=== PATIENT | female | born 1990 | race Caucasian/White ===

== ENCOUNTER 2025-04-11 19:35 | Inpatient (IN) | payer OTHER, SELFPAY ==
--- NOTE | ~2025-04-11 | CT_ITS ---
EXAMINATION: CTA chest PE protocol DATE: 04/11/2025 22:01 INDICATION: Shortness of breath, tachycardia, positive DVT. TECHNIQUE: Computed tomography (CT) pulmonary angiogram of the chest was performed with 100 mL Omnipa que-350 intravenous contrast. Additional 3D reconstructions utilizing coronal maximum intensity proje ction (MIP) were performed. Automated exposure control and iterative reconstruction technique were em ployed. The dose-length product was 289.49 mGy-cm. COMPARISON: None FINDINGS: No pulmonary embolism. Mild dependent atelectasis in bilateral lower lobes. There are a few bilateral calcified pulmonary nodules consistent with old granulomatous disease. No pneumonia, pulmonary edema , pleural effusion or pneumothorax. Heart size is normal. No pericardial effusion. Thoracic aorta is normal in caliber. No pathologically enlarged thoracic lymphadenopathy. Suture lines along the stomac h suggesting prior sleeve gastrectomy. Mild thoracic spondylosis. IMPRESSION: 1. No pulmonary embolism or other acute cardiopulmonary disease. Reviewed, dictated and finalized at location A.
--- NOTE | ~2025-04-11 | US_ITS ---
EXAMINATION: US venous doppler [facility] DATE: 04/11/2025 21:15 INDICATION: Lower limb pain and swelling, tachycardia and elevated d-dimer. TECHNIQUE: Grayscale ultrasound images without and with compression and Doppler ultrasound images of the bilateral lower extremity veins were obtained. COMPARISON: None. FINDINGS: The visualized portions of right common femoral vein, profunda (deep) femoral vein, femoral vein, pop liteal vein, posterior tibial veins, peroneal veins, gastrocnemius vein and greater saphenous vein ou tflow are patent. The visualized portions of left common femoral vein, profunda femoral vein, femoral vein, popliteal v ein, posterior tibial veins, peroneal veins, gastrocnemius vein and greater saphenous vein outflow ar e patent. IMPRESSION: 1. No deep venous thrombosis in either lower limb. Reviewed, dictated and finalized at location A.
--- NOTE | ~2025-04-11 | US_ITS ---
EXAMINATION: US venous doppler [facility] DATE: 04/11/2025 21:15 INDICATION: Upper extremity pain and swelling, tachycardia and elevated d-dimer TECHNIQUE: Grayscale images without and with compression and Doppler images of the bilateral upper ex tremity veins were obtained. COMPARISON: None. FINDINGS: The right internal jugular vein, subclavian vein, axillary vein, brachial vein, basilic vein, cephali c vein, radial vein, and ulnar vein are patent. There is noncompressible thrombus in the left ulnar vein, left brachial vein and left basilic vein. T he left internal jugular vein, subclavian vein, axillary vein, cephalic vein and radial vein are woods nt. IMPRESSION: 1. Noncompressible thrombus in the left brachial, basilic and ulnar veins. 2. No thrombosis in the veins of the right upper extremity. Reviewed, dictated and finalized at location A.
--- NOTE | ~2025-04-11 | CT_ITS ---
Non-contrast Head CT History: Right arm paresthesia Technique: Axial non-contrast imaging of the brain was performed. Dose reduction technique was used on this scan by utilizing automated exposure control and iterative reconstruction technique. The dose -length product (DLP) was 681.00 mGy-cm. Findings: There is no evidence of intracranial hemorrhage, mass lesion, or acute infarct. Brain par enchyma appears normal. The ventricles and subarachnoid spaces are normal in size. The calvarium ap pears normal. The visualized paranasal sinuses and mastoid air cells are clear. Impression: No significant abnormality seen. Reviewed, dictated and finalized at location . Impression: No significant abnormality seen.
--- NOTE | ~2025-04-11 | XR_ITS ---
EXAMINATION: XR chest 1V portable DATE: 04/11/2025 19:53 INDICATION: Shortness of breath. Tachycardia. TECHNIQUE: AP view of the chest was obtained. COMPARISON: None FINDINGS: The lungs are clear with no focal airspace opacities, pulmonary edema, pleural effusion or pneumothor ax. The cardiomediastinal silhouette is normal. Visualized bones and soft tissues are unremarkable. IMPRESSION: 1. No acute cardiopulmonary disease. Reviewed, dictated and finalized at location A.
--- NOTE | ~2025-04-11 | US_ITS ---
US right upper quadrant INDICATION: PROCEDURE: Realtime right upper abdominal ultrasound. COMPARISON: No prior studies for comparison. FINDINGS: The pancreas is normal without focal mass or pancreatic ductal dilation. Liver is enlarged measuring 17.9 cm. Liver echotexture is increased consistent with fatty infiltration. There is norm al directional flow in the portal vein. The gallbladder is normal without stones, gallbladder wall thickening or pericholecystic fluid. Comm on bile duct measures 4 mm. No sonographic Aponte's sign. IMPRESSION: 1: Fatty infiltration of the liver with hepatomegaly. Reviewed, dictated and finalized at location B.
[2025-04-11 19:38] VITALS: BP 113/72; PULSE 137; RESP 18; TEMP 36.8; O2SAT 100
--- NOTE | 2025-04-11 19:41 | ECG_ITS ---
Test Date: 2025-04-11 19:41:58 Measurements Intervals [place] Rate: 139 P: 84 DE: 118 QRS: 86 QRSD: 89 T: 7 QT: 290 QTc: 442 Interpretive Statements SINUS TACHYCARDIA MODERATE ST DEPRESSION [0.05+ mV ST DEPRESSION] No previous ECG available for comparison Electronically Signed On 04-12-2025 12:40:17 CDT by Kris Diallo M.D.
[2025-04-11 20:00] VITALS: PULSE 125
--- NOTE | 2025-04-11 20:02 | ED_ITS ---
[facility] - General Adult General Chief complaint: Unspecified Stated complaint: leg swelling, arm numbness, headache Time Seen by Provider: 04/11/25 19:46 History of Present Illness HPI narrative: 34-year-old female [facility] for concerns of shortness of breath, swollen right arm and right leg as well as intermittent paresthesias in her right upper extremity from the elbow down to the wrist. Endorses a headache earlier that was responsive to Tylenol presently gone. No trauma or injury, no neck pain, chest pain, abdominal pain or back pain. She states she has had a large weight gain over last few weeks as well. She was recently hospitalized for heat exhaustion and dehydration at [facility] and discharged home on Thursday. She reported that she had a high dimer at that time and get a CT scan of the chest that was negative but did not do any kind of ultrasounds were extremities and this raised her her concern for blood clot in her arms or legs especially with the swelling in the extremities and intermittent paresthesias. No control use, no history of blood clots, no anticoagulation use otherwise. Related Data Allergies Allergy/AdvReac Type Severity Reaction Status Date / Time No Known Allergies Allergy Verified 04/11/25 19:36 Review of Systems 2 Review of Systems: As reviewed above in [facility] Past Medical History Medical History (Updated 04/12/25 @ 05:24 by Enrique Jasso MD) Venous thrombosis of upper extremity Left brachial, basilic, ulnar vein diagnosis on 04/11/2025 Exam 2 Narrative: GENERAL: [Well-appearing, well-nourished, and in no acute distress.] HEAD: [Normocephalic, atraumatic.] EYES: [PERRLA and EOMI.] ENT: Nares clear, no rhinorrhea or epistaxis. Mucous membranes moist. NECK: Supple. CHEST: [Clear to auscultation. No respiratory distress.] HEART: [Regular rate and rhythm]. No murmur heard. [Normal peripheral pulses.] ABDOMEN: [Soft, nondistended], [nontender], [No rigidity or guarding] EXTREMITIES: Mild calf asymmetry with right-sided greater than left-sided but no pitting edema to the legs. No pain with calf palpation stretching. Warm extremities, equal pulses. Right upper extremity has some reproducible pain along the antecubital fossa going down to the wrist on the lateral aspect with recent venipuncture site and bruising proximally near the AC from previous IV several days ago. Chuck Splitter strength 5/5, no upper extremity asymmetry, full range of motion at the shoulder elbow and wrist. SKIN: Warm, dry, no rash. NEURO: [No focal deficits]. Alert and oriented [x3.] PSYCH: [Normal mood and affect.] Course Vital Signs Vital signs: Vital Signs Temperature 36.8 C 04/11/25 19:38 Pulse Rate 137 H 04/11/25 19:38 Respiratory Rate 18 04/11/25 19:38 Blood Pressure 113/72 04/11/25 19:38 Pulse Oximetry 100 04/11/25 19:38 Oxygen Delivery Room Air 04/11/25 19:38 Temperature 36.8 C 04/11/25 19:38 Pulse Rate 83 04/12/25 02:31 Respiratory Rate 16 04/12/25 02:31 Blood Pressure 105/69 04/12/25 02:31 Pulse Oximetry 99 04/12/25 02:31 Oxygen Delivery Room Air 04/11/25 19:38 Medical Decision Making MDM Narrative Medical decision making narrative: 34-year-old female presenting [facility] for concerns of shortness of breath, swollen right arm and right leg as well as intermittent paresthesias in her right upper extremity from the elbow down to the wrist. Endorses a headache earlier that was responsive to Tylenol presently gone. No trauma or injury, no neck pain, chest pain, abdominal pain or back pain. She states she has had a large weight gain over last few weeks as well. She was recently hospitalized for heat exhaustion and dehydration at [facility] and discharged home on Thursday. She reported that she had a high dimer at that time and get a CT scan of the chest that was negative but did not do any kind of ultrasounds were extremities and this raised her her concern for blood clot in her arms or legs especially with the swelling in the extremities and intermittent paresthesias. No control use, no history of blood clots, no anticoagulation use otherwise. Examination reveals patient is tachycardic with a pulse of 100 20s to 130s with regular rhythm. Normal blood pressure, no tachypnea, hypoxia or fever. Mild calf asymmetry with right-sided greater than left-sided but no pitting edema to the legs. No pain with calf palpation stretching. Warm extremities, equal pulses. Right upper extremity has some reproducible pain along the antecubital fossa going down to the wrist on the lateral aspect with recent venipuncture site and bruising proximally near the AC from previous IV several days ago. Chuck Splitter strength 5/5, no upper extremity asymmetry, full range of motion at the shoulder elbow and wrist. Patient's constellation of symptoms are vague could be related to her recent hospitalization for dehydration and heat exhaustion, rhabdomyolysis is possible, blood clot in the arms or legs possible specially with the calf asymmetry. Her pain right upper extremity was subjective paresthesias is intermittent in nature not constant and her headache is gone so suspicion for intracranial pathology is unlikely and especially with the venipuncture site being the started for area and question of symptoms on the right upper extremity suspicion for phlebitis and thrombophlebitis is higher. Bilateral upper and lower extremity Dopplers were ordered, CBC, CMP, troponin, EKG, chest x-ray, CPK, fluid bolus ordered. Patient's Dopplers were independently reviewed and also interpreted by Radiology she does have an acute DVT in the basilic, ulnar and brachial veins. Given patient's tachycardia and subjective shortness of breath suspicion raise for pulmonary embolism at this time so CT thorax with PE protocol ordered. CT PE was independently reviewed and also interpreted by Radiology without any acute cardiopulmonary disease in the chest and no PE was found. Patient does have an elevated CPK but her compartments are soft and her extremities with recent heat exhaustion and admission to outside hospital this is likely rhabdomyolysis from dehydration. Patient's CPK was down trending as well as her heart rate normalized with fluid resuscitation which makes me reassured. Laboratory studies otherwise show no leukocytosis or anemia. Lactic acid 2.3 down trending to 1.2, negative troponin x2. Negative lipase, normal kidney function. Patient started on 10 mg dose of Eliquis for her acute DVTs and discussed the case with the hospitalist for admission given patient's rhabdomyolysis, acute DVTs, need for rehydration and her concerning vital signs on presentation that have since normalized. Patient was accepted to the hospital under telemetry monitored bed at this time. Patient re-evaluated and comfortable the plan and felt improved after hydration. Medical Records Medical records reviewed: Yes I reviewed the external patient's medical records. Vital Signs Vital Signs: Vital Signs Temperature 36.8 C 04/11/25 19:38 Pulse Rate 137 H 04/11/25 19:38 Respiratory Rate 18 04/11/25 19:38 Blood Pressure 113/72 04/11/25 19:38 Pulse Oximetry 100 04/11/25 19:38 Oxygen Delivery Room Air 04/11/25 19:38 Temperature 36.8 C 04/11/25 19:38 Pulse Rate 83 04/12/25 02:31 Respiratory Rate 16 04/12/25 02:31 Blood Pressure 105/69 04/12/25 02:31 Pulse Oximetry 99 04/12/25 02:31 Oxygen Delivery Room Air 04/11/25 19:38 Lab Data Lab results reviewed: Yes I reviewed the patient's lab results. 04/11/25 20:07 04/11/25 20:07 Labs: Lab Results 04/11/25 04/11/25 Range/Units 20:07 22:41 WBC 9.5 (4.5-10.0) K/mm3 RBC 4.19 L (4.2-5.4) M/mm3 Hgb 12.0 (12.0-15.0) g/dL Hct 38.0 (37.0-47.0) % MCV 90.7 (80-100) fl MCH 28.6 (26-34) pg MCHC 31.6 L (32-36) g/dl RDW 13.7 (11.5-14.5) % Plt Count 333 (150-375) k/mm3 MPV 8.4 (7.4-10.4) fl Immature Gran % (Auto) 0.3 (0-0.5) % Neut % (Auto) 63.3 (45.5-73.1) % Lymph % (Auto) 27.1 (18.3-44.2) % [place] % (Auto) 6.6 (2.6-8.5) % Eos % (Auto) 1.9 (0-4.4) % Baso % (Auto) 0.8 (0.2-1.2) % Lymph # (Auto) 2.58 (0.9-3.2) K/mm3 [place] # (Auto) 0.6 (0.1-0.6) K/mm3 Eos # (Auto) 0.2 (0-0.3) K/mm3 Baso # (Auto) 0.1 (0.0-0.1) K/mm3 Abs Immat Gran (auto) 0.03 (0.00-0.031) K/mm3 Absolute Neuts (auto) 6.0 (1.3-6.7) K/mm3 Absolute Nucleated RBC 0.000 (0.0-0.012) K/mm3 Nucleated RBC % 0.0 (0.0-0.2) % PT 11.8 (11.1-14.7) Seconds INR 0.8 APTT 24.9 (22.3-36.8) Seconds Sodium 138 (137-145) mmol/L Potassium 4.6 (3.4-5.0) mmol/L Chloride 106 (98-107) mmol/L Carbon Dioxide 26 (22-30) mmol/L Anion Gap 6 (4-12) mmol/L BUN 15 (7-17) mg/dL Creatinine 0.75 (0.7-1.0) mg/dL Estim Creat Clear Calc 93 ml/min Estimated GFR > 60 (59 - ) Glucose 86 (65-110) mg/dL Lactic Acid 2.3 H (0.7-2.0) mmol/L Calcium 9.2 (8.4-10.2) mg/dL Total Bilirubin 0.2 (0.2-1.3) mg/dL AST 67 H (14-36) U/L ALT 88 H (6-35) U/L Alkaline Phosphatase 70 (38-126) U/L Total Creatine Kinase 2255 H 1499 H (30-135) U/L Troponin I < 0.012 < 0.012 (0.000-0.034) ng/mL Total Protein 6.9 (6.3-8.2) g/dL Albumin 3.7 (3.5-5.1) g/dL Lipase 211 (23-300) U/L Imaging Data Attestation: I personally reviewed and interpreted this imaging study as follows: My impression: Impressions Chest X-Ray 04/11/25 20:15 IMPRESSION: 1. No acute cardiopulmonary disease. Venous Doppler Study 04/11/25 21:35 IMPRESSION: 1. Noncompressible thrombus in the left brachial, basilic and ulnar veins. 2. No thrombosis in the veins of the right upper extremity. Venous Doppler Study 04/11/25 21:38 IMPRESSION: 1. No deep venous thrombosis in either lower limb. Chest CTA 04/11/25 22:07 IMPRESSION: 1. No pulmonary embolism or other acute cardiopulmonary disease. Discharge Plan Discharge Clinical Impression: Venous thrombosis of upper extremity, Rhabdomyolysis, Acute dehydration Patient Disposition: Still a Patient Condition: Stable
[2025-04-11] MEDS: LACTATED RINGERS 1,000 ML 999 ML IV CONT ×2 (20:12→21:46)
[2025-04-11 20:17] LABS: Hematocrit 38.0 % (37.0-47.0); Hemoglobin 12.0 g/dL (12.0-15.0); Immature Granulocyte Percent A 0.3 % (0-0.5); Lymphocytes Absolute Auto 2.58 K/mm3 (0.9-3.2); Mean Corpuscular HGB Conc 31.6 g/dl (32-36); Mean Corpuscular Hemoglobin 28.6 pg (26-34); Mean Corpuscular Volume 90.7 fl (80-100); Nucleated Red Blood Cells Absolute Auto 0.000 K/mm3 (0.0-0.012); Nucleated Red Blood Cells Perc 0.0 % (0.0-0.2); Platelet Count Result 333 k/mm3 (150-375); Red Blood Count 4.19 M/mm3 (4.2-5.4); White Blood Count 9.5 K/mm3 (4.5-10.0)
[2025-04-11 20:28] LABS: INR 0.8; Prothrombin Time 11.8 Seconds (11.1-14.7)
[2025-04-11 20:29] LABS: Partial Thromboplastin Time 24.9 Seconds (22.3-36.8)
[2025-04-11 20:36] LABS: Alanine Aminotransferase 88 U/L (6-35); Albumin Level 3.7 g/dL (3.5-5.1); Alkaline Phosphatase 70 U/L (38-126); Anion Gap 6 mmol/L (4-12); Aspartate Amino Transferase 67 U/L (14-36); Bilirubin,Total 0.2 mg/dL (0.2-1.3); Blood Urea Nitrogen 15 mg/dL (7-17); Calcium 9.2 mg/dL (8.4-10.2); Carbon Dioxide 26 mmol/L (22-30); Chloride 106 mmol/L (98-107); Estimated CRCL calculation 93 ml/min; Estimated Glomerular Filt Rate > 60; Glucose 86 mg/dL (65-110); Lipase 211 U/L (23-300); Potassium 4.6 mmol/L (3.4-5.0); Sodium 138 mmol/L (137-145); Total Protein 6.9 g/dL (6.3-8.2)
[2025-04-11 20:40] VITALS: PULSE 102
--- OUTSIDE RECORDS SUMMARY | 2025-04-11 20:43 | XMS_ITS ---
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 Name Role Phone Lesly Snell Primary Care Provider Allergies No Known Allergies REASON FOR VISIT Residential Physical needs blood drawn and physical alteady admitted Medications Medication SIG (Take, Route, Frequency, Duration) Notes Start Date End Date Status Prazosin HCl 1 MG 1 capsule at bedtime Orally Once a day Active hydrOXYzine Pamoate 25 MG 1 capsule at b edtime as needed Orally Once a day Active Daily Vitamin Active Nicotine Step 1 21 MG/24HR 1 patch to sk in Transdermal Once a day Active Nicotine Polacrilex Mini 2 MG as directed Mouth/Throat Act evelyne Nicotine Polacrilex 4 MG Chew 1 piece as needed for nicotine cravings Mouth/Throat up to every hour (max of 20 pieces per day); Duration: 7 days 04/10/2025 Active Prazosin HCl 2 MG 1 capsule at bedtime Orally Once a day Active hydrOXYzine Pamoate 25 MG 1-2 capsules O rally every 4 hours as needed for anxiety, agitation, or inability to sleep. Do not give within 4 hours of diphenhydramine.; Duration: 30 days 04/10/2025 Active Melatonin 5 MG 1 tablet at bedtime as needed Orally Once a day; Duration: 30 days 04/10/2025 Active Social History Sex Assigned At : Social History Observation Description Sex Assigned At Female Problems Problem Type SNOMED Code ICD Code Onset Dates Problem Status W/U Status Risk Notes Problem Stimulant dependence (134468523) Methamphetamine use disorder, moderate (F15.20) Active confirmed Problem Overweight (671221462) Over weight (E66.3) Active confirmed Vital Signs Weight 160 lbs 04/10/2025 BMI 26.62 kg/m2 04/10/2025 Height 65 in 04/10/2025 Blood pressure systolic 138 mm Hg 04/10/20 25 Blood pressure diastolic 80 mm Hg 025 Heart Rate 96 /min 04/10/2025 Oximetry 100 % 04/10/2025 Temperature 98.1 degrees Fahrenheit 04/10/20 25 Respiratory Rate 20 /min 04/10/2025 Encounters Encounter Location Date Provider Diagnosis [place] [address] [place] [address] 04/10/2025 Lesly Snell Encounter for adult wellness visit Z00.00 ; Methamphetamine use disorder, moderate F15.20 and Over weight E66.3 Assessments Encounter Date Diagnosis (ICD Code) Assessment Notes Treatment Notes Treatment Clinical Notes Section Notes 04/10/2025 Encounter for adult wellness visit (ICD-10 - Z00.00) Continue treatment as recommended by [facility] staff. Encouraged patient to obtain routine medical care with patient's own primary care provider or establish as a patient at [facility] if no current primary care provider. -presented for physical for admission to [facility], exam completed, stable for admission 04/10/2025 Methamphetamine use disorder, moderate (ICD-10 - F15.20) SUPR Programs: Based on an evaluation of [facility] Patient Placement Criteria, a recommendation for placement in Level III treatment is indicated and approved. Confirmation of diagnosis is documented in the initial treatment plan.Admit to the Women[facility] Residential Unit and initiate standing/protocol orders: The following PRN medications may be self-administered by patients under the supervision of approved staff or administered by nursing staff: Ibuprofen 200mg, 2-4 tablets by mouth (with food) every 6 hours as needed for pain (unless on lithium). (NOTE: Ibuprofen and acetaminophen may be given together, but alternating is recommended for continuous pain relief. Guaifenesin 400 mg, 1 tablet by mouth every four hours as needed for cough and chest congestion (take with large glass of water). Loratadine 10 mg, 1 tablet by mouth daily as needed for allergies, watery itchy eyes, or sinus drainage. Throat Lozenges, up to 4 tablets by mouth every three to four hours as needed for sore throat. Antacid tablets, 1-2 tablets by mouth every one to two hours as needed for indigestion or heart burn. If the client prefers liquid, could use: Liquid Antacid : 1 ounce by mouth up to four times daily as needed for indigestion or heartburn Omeprazole 20mg, 1 capsule by mouth once daily for 14 days for frequent heartburn (frequent heartburn is more than 2 episodes per week). Do not exceed 14 days. Do not give to client already taking a proton-pump inhibitor: esomeprazole (Nexium), lansoprazole (Prevacid), pantoprazole (Protonix), rabeprazole (Aciphex), dexlansoprazole (Dexilant) Zofran ODT disintegrating (under the tongue) 4 mg, 1-2 tablets every 8 hours as needed for nausea/vomiting. Milk of Magnesia (MOM): 1 ounce (30 milliliters) by mouth every day as needed for constipation. OR Miralax: Stir and fully dissolve 17 grams (1 packet or 1 capful to measured line) in any 4 to 8 ounces of beverage then drink once daily for constipation. Do not use for more than 7 days. OR Docusate 100 mg, 1 capsule twice daily as needed for constipation Hydrocortisone 1% Cream, apply topically (to the skin) to the affected area up to three times daily as needed for itching or inflammation (avoid eyes and genitals). 2% Antifungal Cream, apply topically (to the skin) as directed as needed to affected areas for athlete's foot or jock itch. Triple Antibiotic Ointment, apply topically (to the skin) up to three times daily as needed for minor cuts and scrapes. Carmex or Chapstick, apply topically (to the skin) as needed for chapped lips and skin. Orajel, apply to affected areas as needed for mouth or tooth pain. Lubricating Eye Drops, instill 1-2 drops to the affected eye(s) as needed for dry/irritated eye(s). Hemorrhoid medications, apply to affected area according to directions as needed for hemorrhoid discomfort and itch. Nix (Permethrin 1%) cream 2 ounces, apply topically (to the skin) as directed as needed for head lice. Sunscreen 30 SPF, Apply to exposed skin prior to exposure to sun. The following PRN medications must be approved by nursing staff before self-administratio n by patients: Diphenhydramine 25 mg, 2 tablets by mouth every 4 hours as needed for allergic reaction or itchy rash. Caution: Do not use hydroxyzine within 4 hours of diphenhydramine and vice versa. Loperamide 2 mg capsules, may give two capsules by mouth for the initial dose, followed by one capsule up to 3 times a day as needed for diarrhea. Acetaminophen 500 mg, 1 - 2 tablets by mouth every six hours as needed for pain. (NOTE: Ibuprofen and acetaminophen may be given together, but alternating is recommended for continuous pain relief). Oxygen-May administer oxygen 2L/min via nasal cannula if O2 saturation is less than 92%, AND client complains of shortness of breath. Target O2 saturation is 94-98%. Caution: Remember too much oxygen can be detrimental to a client with COPD. Oxygen is a drug and should be delivered by trained staff only. Nurses may remove superficial splinters and sutures from skin lacerations. May apply gauze or bandages to any weeping wounds. Contact nursing if there is pus, a foul odor, increased pain/redness/swell ing, or if soaking through bandages. - treatment per recommendations 04/10/2025 Over weight (ICD-10 - E66.3) 04/10/2025 Other Plan Of Treatment Medication Medication Name Sig Start Date Stop Date Notes Nicotine Polacrilex 4 MG Chew 1 piece as needed for nicotine cravings Mouth/Throat up to every hour (max of 20 pieces per day); Duration: 7 days 04/10/2025 hydrOXYzine Pamoate 25 MG 1-2 capsules O rally every 4 hours as needed for anxiety, agitation, or inability to sleep. Do not give within 4 hours of diphenhydramine.; Duration: 30 days 04/10/2025 Melatonin 5 MG 1 tablet at bedtime as needed Orally Once a day; Duration: 30 days 04/10/2025 Treatment Notes Assessment Notes Encounter for adult wellness visit Continue treatment as recommended by [place] staff. Encouraged patient to obtain routine medical care with patient's own primary care provider or establish as a patient at [facility] if no current primary care provider. -presented for physical for admission to [facility], exam completed, stable for admission Methamphetamine use disorder, moderate SUPR Programs: Based on an evaluation of [facility] Patient Placement Criteria, a recommendation for placement in Level III treatment is indicated and approved. Confirmation of diagnosis is documented in the initial treatment plan.Admit to the Women's Residential Unit and initiate standing/protocol orders: The following PRN medications may be self-administered by patients under the supervision of approved staff or administered by nursing staff: Ibuprofen 200mg, 2-4 tablets by mouth (with food) every 6 hours as needed for pain (unless on lithium). (NOTE: Ibuprofen and acetaminophen may be given together, but alternating is recommended for continuous pain relief. Guaifenesin 400 mg, 1 tablet by mouth every four hours as needed for cough and chest congestion (take with large glass of water). Loratadine 10 mg, 1 tablet by mouth daily as needed for allergies, watery itchy eyes, or sinus drainage. Throat Lozenges, up to 4 tablets by mouth every three to four hours as needed for sore throat. Antacid tablets, 1-2 tablets by mouth every one to two hours as needed for indigestion or heart burn. If the client prefers liquid, could use: Liquid Antacid : 1 ounce by mouth up to four times daily as needed for indigestion or heartburn Omeprazole 20mg, 1 capsule by mouth once daily for 14 days for frequent heartburn (frequent heartburn is more than 2 episodes per week). Do not exceed 14 days. Do not give to client already taking a proton-pump inhibitor: esomeprazole (Nexium), lansoprazole (Prevacid), pantoprazole (Protonix), rabeprazole (Aciphex), dexlansoprazole (Dexilant) Zofran ODT disintegrating (under the tongue) 4 mg, 1-2 tablets every 8 hours as needed for nausea/vomiting. Milk of Magnesia (MOM): 1 ounce (30 milliliters) by mouth every day as needed for constipation. OR Miralax: Stir and fully dissolve 17 grams (1 packet or 1 capful to measured line) in any 4 to 8 ounces of beverage then drink once daily for constipation. Do not use for more than 7 days. OR Docusate 100 mg, 1 capsule twice daily as needed for constipation Hydrocortisone 1% Cream, apply topically (to the skin) to the affected area up to three times daily as needed for itching or inflammation (avoid eyes and genitals). 2% Antifungal Cream, apply topically (to the skin) as directed as needed to affected areas for athlete's foot or jock itch. Triple Antibiotic Ointment, apply topically (to the skin) up to three times daily as needed for minor cuts and scrapes. Carmex or Chapstick, apply topically (to the skin) as needed for chapped lips and skin. Orajel, apply to affected areas as needed for mouth or tooth pain. Lubricating Eye Drops, instill 1-2 drops to the affected eye(s) as needed for dry/irritated eye(s). Hemorrhoid medications, apply to affected area according to directions as needed for hemorrhoid discomfort and itch. Nix (Permethrin 1%) cream 2 ounces, apply topically (to the skin) as directed as needed for head lice. Sunscreen 30 SPF, Apply to exposed skin prior to exposure to sun. The following PRN medications must be approved by nursing staff before self-administration by patients: Diphenhydramine 25 mg, 2 tablets by mouth every 4 hours as needed for allergic reaction or itchy rash. Caution: Do not use hydroxyzine within 4 hours of diphenhydramine and vice versa. Loperamide 2 mg capsules, may give two capsules by mouth for the initial dose, followed by one capsule up to 3 times a day as needed for diarrhea. Acetaminophen 500 mg, 1 - 2 tablets by mouth every six hours as needed for pain. (NOTE: Ibuprofen and acetaminophen may be given together, but alternating is recommended for continuous pain relief). Oxygen-May administer oxygen 2L/min via nasal cannula if O2 saturation is less than 92%, AND client complains of shortness of breath. Target O2 saturation is 94-98%. Caution: Remember too much oxygen can be detrimental to a client with COPD. Oxygen is a drug and should be delivered by trained staff only. Nurses may remove superficial splinters and sutures from skin lacerations. May apply gauze or bandages to any weeping wounds. Contact nursing if there is pus, a foul odor, increased pain/redness/swelling, or if soaking through bandages. 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 Residential Physical needs blood drawn and physical alteady admitted. * HPI: I nterim History: Emergency room visit Y es. W as hospitalized Y es.? D epression Screening: PHQ-9 L ittle interest or pleasure in doing things N ot at all, F eeling down, depressed, or hopeless N ot at all, T rouble falling or staying asleep, or sleeping too much N early every day, F eeling tired or having little energy N early every day, P oor appetite or overeating N early every day, F eeling bad about yourself or that you are a failure, or have let yourself or your family down N ot at all, T rouble concentrating on things, such as reading the newspaper or watching television N early every day, M oving or speaking so slowly that other people could have noticed; or the opposite, being so fidgety or restless that you have been moving around a lot more than usual N early every day, T houghts that you would be better off or of hurting yourself in some way N ot at all, T otal Score 1 5, I nterpretation M oderately Severe Depression. I ntervention D epression Screening Findings P ositive, F ollow-Up for Depression P atient is admitted to a [facility] unit where their mental health is monitored - unit nursing staff have access to this encounter note. S creening: [place] Suicide Severity Rating Scale (LF) D o you want to initiate with S creener form, 1 . Wish to be : Have you wished you were or wished you could go to sleep and not wake up? N o, 2 . Suicidal Thoughts: Have you actually had any thoughts of killing yourself? N o, 6 . Suicide Behavior Question: Have you ever done anything,started to do anything, or prepared to end your life? N o, I nterpretation: L ow Risk. S umaraceli: Presents for physical as patient is admitted to Residential Unit at [place]. N ew/Follow-up Patient Consult: c/o ADHD. c/o Substance problems. Denies : Abdominal pain. D enies : Acne. D enies : Allergic rhinitis. D enies : Allergy Assessment (general). D enies : Anemia (Iron deficient).?Denies : Angioedema. D enies : Ankle sprain. D enies : Asthma. D enies : Asthma Control Classification. D enies : Asthma Risk Category Assessment:. D enies : Bloating. D enies : Blocked ear. D enies : Blood in stool. D enies : Blood in urine. D enies : Blurred vision. D enies : Breast lump. D enies : Back pain. D enies : Burn. D enies : Chest pain. D enies : Chickenpox. D enies : Cold. D enies : Conduct Disorder. D enies : Constipation. D enies : Cough. D enies : Deep vein thrombosis. D enies : Depression. D enies : Anxiety. D enies : Diabetes. D enies : Diarrhea. D enies : Dizziness. D enies : Dry eyes. D enies : Dry skin. D enies : Dysphagia. D enies : Dysuria. D enies : Earache. D enies : Eczema. D enies : Elbow pain. D enies : Elevated cholesterol. D enies : Epigastric pain. D enies : Facial pain. D enies : Fatigue. D enies : Fever. D enies : Food allergy. D enies : Gait disturbance. D enies : Hair loss. D enies : Head injury. D enies : Headache. D enies : Hepatitis. D enies : Hernia. D enies : Hip pain. D enies : Hypertension. D enies : Hyperthyroidism. D enies : Hypothyroidism. D enies : Indigestion. D enies : Ingrown nail. D enies : Insect bite. D enies : Insomnia.?Denies : Irregular menses. D enies : Itching. D enies : Jaundice. D enies : Joint pain. D enies : Joint stiffness. D enies : Joint swelling. D enies : Knee pain. D enies : Laceration. D enies : Lightheadedness. D enies : Loss of consciousness. D enies : Lower extremity edema. D enies : Lump. D enies : Memory loss. D enies : Muscle weakness. Denies : Nasal congestion. D enies : Nausea/Vomiting. D enies : Onychomycosis. D enies : Oppositional defiant. D enies : Osteoporosis. D enies : Painful swallowing. D enies : Palpitations. D enies : Paresthesias. D enies : Peripheral neuropathy. D enies : Poison saurabh. D enies : Psoriasis. D enies : Rash. D enies : Rectal bleeding. D enies : Red eye. D enies : Reflux. D enies : Rosacea. D enies : Seizure. D enies : Shingles. Denies : Shortness of breath. D enies : Shoulder pain. D enies : Sinusitis. D enies : Skin cancer. D enies : Skin infection. D enies : Sleep apnea. D enies : Sore throat.?Denies : Sunburn. D enies : Suture removal. D enies : Syncope. D enies : Tremor. D enies : Ulcer. D enies : Unsteady gait. D enies : Upper respiratory infection. D enies : Urinary incontinence. D enies : Urinary symptoms. D enies : Urinary tract infection. D enies : Visual changes. D enies : Vitamin B12 deficiency. D enies : Wart. D enies : Weakness. D enies : Weight gain. D enies : Weight loss. D enies : Wound. D enies : Consent to treat. Presents for physical for [facility]. [facility]. Has bad ADD, admitted to self-medicating with meth. Has been using meth daily since she's been back from [place] which has been about 2 yrs. Took Meth for both wt loss, weigh to be 300 lbs, and for focus. P re[facility] follow-up: Action Plans for Clinical Quality Measures: B reast Cancer Screening: N ot addressed during this visit. See notes for details., C ervical Cancer Screening: N ot addressed during this visit. See notes for details., C olorectal Cancer Screening: N ot addressed during this visit. See notes for details., H IV Screening: N ot addressed during this visit. See notes for details., T obacco Screening and Cessation: N ot addressed during this visit. See notes for details.. . C SSRS Interpretation and Follow Up Plan: CSSRS Interpretation and Follow Up Plan C SSRS Screen documented using SF Y es, R isk Disposition from SF L ow - No Follow Up Plan Required, F ollow Up Plan N o Follow Up Plan required at this time., T imeframe of Screening T gaudencio. * ROS: B asic ROS: Denies C hills. D enies W eight loss or gain. D enies C hange in appetite. D enies S weats. D enies P oor appetite. D enies?Constipation. I nsomnia A dmits. W eight loss D enies. D ental Pain D enies. W eight gain D enies. D enies C hange in energy level. D enies F atigue. D enies F ever. A dmits B lurred Vision. D enies E ye Pain. D enies?Ear Problems. D enies N ose/Throat problems. D enies N osebleed. D enies Diabetes. D enies T hyroid problems. D enies B reathing Problems. D enies?Cough. D enies H emoptysis. D enies S hortness of breath. D enies C hest pain. D enies D izziness. D enies F luid Accumulation in the legs. D enies H eart Murmur. D enies H eart Problems. D enies P alpitations. D enies A bdominal Pain. D enies B lood in Stool. D enies H eartburn. D enies S tomach Problems. D enies A nemia. D enies E asy bruising. D enies B lood in urine. D enies D ifficulty urinating. D enies F requent urination. D enies K idney problems. D enies A rthritis. D enies B ack Problems. D enies J oint Stiffness.?Denies P ainful joints. D enies S wollen joints. D enies W eakness. D enies R shae. D enies F ainting. D enies H eadache. D enies S eizures.?Denies S troke. D enies T ingling/Numbness. D enies T remor. D enies A nxiety. D enies D epressed Mood. A dmits D ifficulty sleeping. D enies M ental or Physical Abuse. A dmits P sychiatric Condition. A dmits S ubstance Abuse,?methamphetamine use disorder. D enies S uicidal Thoughts. P sych ROS: Constitutional D enies. E yes D enies. E ars/Nose/Mouth/Throat D enies. R espiratory D enies. C ardiovascular D enies. G I?Denies. G U D enies. M usculoskeletal D enies. N eurological D enies. Integumentary D enies. H ematological/Lymphatic D enies. * Medical History: A DD. * Hospitalization/Major Diagno stic Procedure: A 03/2025. * Family History: F ather: alive. M other: alive. 1 brother(s) , 2 sister(s) - healthy. 1 son(s) - healthy. . * Social History: P rimary Social History: L iving Arrangement L iving Arrangement: H omeless, I s this a supportive environment? N o. A lcohol Use A lcohol Use Frequency: W eekly or Daily, T ype of alcohol consumed B eer. I llicit Substance Usage I llicit Substance Usage: Y es, S ubstance Used: M ethamphetamine. E mployment Status E mployment Status: U nemployed. S nahomy Question Alcohol Screening H ow may times in the past year have you had (4 for women, or 5 for men) or more drinks in a day? 1 2. M iscellaneous: M ethod of learning P referred method of learning: R eading,Discussion,Demonstration,Hearing. * Medications: T aking Prazosin HCl 2 MG Capsule 1 capsule at bedtime Orally Once a day , Taking Prazosin HCl 1 MG Capsule 1 capsule at bedtime Orally Once a day , Taking hydrOXYzine Pamoate 25 MG Capsule 1 capsule at bedtime as needed Orally Once a day , Taking Daily Vitamin , Taking Nicotine Step 1 21 MG/24HR Patch 24 Hour 1 patch to skin Transdermal Once a day , Taking Nicotine Polacrilex Mini 2 MG Lozenge as directed Mouth/Throat , Medication List reviewed and reconciled with the patient * Allergies: N .K.D.A. Objective: * Vitals: W t:160, Ht:65, BMI:26.62, BP:138/80, HR:96, Oxygen sat %:100, Temp:98.1, RR:20, LMP:03/2025, Pain scale:0. * Examination: G eneral Examination: GENERAL APPEARANCE: [age] y/o female , alert, well hydrated, in no acute distress , pleasant c ooperative, well nourished. HEAD: n ormocephalic , atraumatic. EYES: B OTH EYES , extraocular movement full and smooth , pupils equal, round, reactive to light and accommodation, fundus normal, conjunctiva clear. EARS B OTH EARS , auditory canal clear , tympanic membrane intact, clear, hearing intact to finger rub posterior to ear. NOSE: n felipa patent , no lesions , sinuses nontender bilaterally. ORAL CAVITY: g ums normal , palate normal , tongue in midline , posterior pharynx without erythema or exudate, carious teeth. THROAT: c lear , no erythema , no exudate , pharynx normal , tonsils normal , uvula midline. NECK/THYROID: n yaquelin supple, full range of motion , no cervical lymphadenopathy , no thyromegaly , thyroid nontender , trachea midline. LYMPH NODES: n o cervical adenopathy. SKIN: w arm and dry , no rashes , no suspicious lesions , good turgor , normal hair distribution. HEART: r egular rate and rhythm , no murmurs, rubs, gallops. LUNGS: r espirations regular and easy , clear to auscultation bilaterally , no wheezes, rales, rhonchi , clear anteriorly and posteriorly , good air movement.? CHEST: n ormal shape and expansion , no accessory muscle use. BREASTS: n ot examined. ABDOMEN: b owel sounds present , soft, nontender, nondistended , no organomegaly , , voluntary guarding. RECTAL: n ot examined. BACK: n o CVA tenderness , full range of motion , spine nontender to palpation. FEMALE GENITOURINARY: n ot applicable. MALE GENITOURINARY: n ot examined. MUSCULOSKELETAL: n o joint deformity, swelling, redness, or warmth , MELISSA upper and lower extremities , full range of motion , full range of motion all joints.? EXTREMITIES: f ull range of motion , good capillary refill in nail beds , no clubbing, cyanosis, or edema. PERIPHERAL PULSES: 2 + radial , 2+ dorsalis pedis , 2+ posterior tibial. NEUROLOGIC: c ranial nerves 2-12 grossly intact , alert and oriented , neck supple, gait normal , normal muscle tone and strength , sensory exam intact , cooperative with exam , motor strength normal upper and lower extremities. PSYCH: f ull range of affect/positive mood, good eye contact, alert, oriented x4, cognitive function intact, cooperative with exam, thought process logical, goal directed. Assessment: * Assessment: 1. E [facility] visit - Z00.00 (Primary) 2 . M ethamphetamine use disorder, moderate - F15.20 3 . O sara weight - E66.3 Plan: * Treatment: 2. M ethamphetamine use disorder, moderate Start Nicotine Polacrilex Gum, 4 MG, Chew 1 piece as needed for nicotine cravings, Mouth/Throat, up to every hour (max of 20 pieces per day), 7 days, 140, Refills 3; S tart Melatonin Tablet, 5 MG, 1 tablet at bedtime as needed, Orally, Once a day, 30 days, 30 Tablet, Refills 0; S tart hydrOXYzine Pamoate Capsule, 25 MG, 1-2 capsules, Orally, every 4 hours as needed for anxiety, agitation, or inability to sleep. Do not give within 4 hours of diphenhydramine., 30 days, 60 Tablet, Refills 0. L AB: QuantiFERON-TB Gold Plus ([id number]) (Ordered for 04/10/2025) (Collection Date & Time - 04/10/2025) Notes: [facility] Programs: Based on an evaluation of [facility] Patient Placement Criteria, a recommendation for placement in Level III treatment is indicated and approved. Confirmation of diagnosis is documented in the initial treatment plan. Admit to the [facility] and initiate standing/protocol orders: The following PRN medications may be self-administered by patients under the supervision of approved staff or administered by nursing staff:Ibuprofen 200mg, 2-4 tablets by mouth (with food) every 6 hours as needed for pain (unless on lithium). (NOTE: Ibuprofen and acetaminophen may be given together, but alternating is recommended for continuous pain relief.Guaifenesin 400 mg, 1 tablet by mouth every four hours as needed for cough and chest congestion (take with large glass of water).Loratadine 10 mg, 1 tablet by mouth daily as needed for allergies, watery itchy eyes, or sinus drainage.Throat Lozenges, up to 4 tablets by mouth every three to four hours as needed for sore throat.Antacid tablets, 1-2 tablets by mouth every one to two hours as needed for indigestion or heart burn. If the client prefers liquid, could use: Liquid Antacid : 1 ounce by mouth up to four times daily as needed for indigestion or heartburnOmeprazole 20mg, 1 capsule by mouth once daily for 14 days for frequent heartburn (frequent heartburn is more than 2 episodes per week). Do not exceed 14 days. Do notgive to client already taking a proton-pump inhibitor: esomeprazole (Nexium), lansoprazole (Prevacid), pantoprazole (Protonix), rabeprazole (Aciphex), dexlansoprazole (Dexilant)Zofran ODT disintegrating (under the tongue) 4 mg, 1-2 tablets every 8 hours as needed for nausea/vomiting.Milk of Magnesia (MOM): 1 ounce (30 milliliters) by mouth every day as needed for constipation.ORMiralax: Stir and fully dissolve 17 grams (1 packet or 1 capful to measured line) in any 4 to 8 ounces of beverage then drink once daily for constipation. Do not use for more than 7 days.ORDocusate 100 mg, 1 capsule twice daily as needed for constipationHydrocortisone 1% Cream, apply topically (to the skin) to the affected area up to three times daily as needed for itching or inflammation (avoid eyes and genitals).2% Antifungal Cream, apply topically (to the skin) as directed as needed to affected areas for athlete's foot or jock itch.Triple Antibiotic Ointment, apply topically (to the skin) up to three times daily as needed for minor cuts and scrapes.Carmex or Chapstick, apply topically (to the skin) as needed for chapped lips and skin.Orajel, apply to affected areas as needed for mouth or tooth pain.Lubricating Eye Drops, instill 1-2 drops to the affected eye(s) as needed for dry/irritated eye(s).Hemorrhoid medications, apply to affected area according to directions as needed for hemorrhoid discomfort and itch.Nix (Permethrin 1%) cream 2 ounces, apply topically (to the skin) as directed as needed for head lice.Sunscreen 30 SPF, Apply to exposed skin prior to exposure to sun. The following PRN medications must be approved by nursing staff before self-administration by patients:Diphenhydramine 25 mg, 2 tablets by mouth every 4 hours as needed for allergic reaction or itchy rash.Caution: Do not use hydroxyzine within 4 hours of diphenhydramine and vice versa.Loperamide 2 mg capsules, may give two capsules by mouth for the initial dose, followed by one capsule up to 3 times a day as needed for diarrhea.Acetaminophen 500 mg, 1 - 2 tablets by mouth every six hours as needed for pain. (NOTE: Ibuprofen and acetaminophen may be given together, but alternating is recommended for continuous pain relief).Oxygen-May administer oxygen 2L/min via nasal cannula if O2 saturation is less than 92%, AND client complains of shortness of breath. Target O2 saturation is 94-98%.Caution: Remember too much oxygen can be detrimental to a client with COPD. Oxygen is a drug and should be delivered by trained staff only. Nurses may remove superficial splinters and sutures from skin lacerations. May apply gauze or bandages to any weeping wounds. Contact nursing if there is pus, a foul odor, increased pain/redness/swelling, or if soaking through bandages. - treatment per recommendations * Recommended Wellness and Pre vention Guidelines: * S tatus A lert L ast Done N ext Due A ction Taken N ONCOMPLIANT A lcohol use screening - 0 04/10/2025 - - N ONCOMPLIANT A llergy List Verification - 0 04/10/2025 - - N ONCOMPLIANT B naun Mass Index - 0 04/10/2025 - - N ONCOMPLIANT C ervical cancer screening - 0 04/10/2025 - - N ONCOMPLIANT D epression followup 0 04/10/2025 0 04/10/2025 - - N ONCOMPLIANT H IV screening - 0 04/10/2025 - - N ONCOMPLIANT S moking status - 0 04/10/2025 - - * Procedure Codes: 3 008F BODY MASS INDEX DOCD * Preventive Medicine: Counseling: S MOKING: P atient counselled on the dangers of tobacco use and urged to quit. . . C are goal follow-up plan: B OH management provided Y cullen, Lindsay joya Normal BMI Follow-up L joriyle education regarding diet. * Follow Up: p rn (Reason: methamphetamine use disorder, follow up as needed) * * Electronic signature of Pk Snell , [id number] on 04/11/2025 at 08:43 PM CDT Sign off status: Pending * Provider: Todd Snell, DNP, CASE FILLER, LONGITUDINAL FLOAT OPERATOR-C Date: 04/10/2025 Generated for Printing/Faxing/eTransmitting on: 04/11/2025 08:43 PM CDT History and Physical Notes * HPI (History of Present Illness) Category Sub-Category Detail Notes Category Not es Interim History Was hospitalized Yes Emergency room visit Yes New/Follow-up Patient Consult Presents for nancy castillo for [facility]. Ad[facility] to [facility]. Has bad ADD, admitted to self-medicating with meth. Has been using meth daily since she's been back from [place] which has been about 2 yrs. Took Meth for both wt loss, weigh to be 300 lbs, and for focus. Depression Screening PHQ-9 Little inte rest or pleasure in doing things: Not at all Feeling down, depressed, or hopeless: No t at all Trouble falling or staying asleep, or sl eeping too much: Nearly every day Feeling tired or having little energy: N early every day Poor appetite or overeating: Nearly ever y day Feeling bad about yourself o r that you are a failure, or have let yourself or your family down: Not at all Trouble concentrating on [facility] ngs, such as reading the newspaper or watching television: Nearly every day Moving or speaking so slowly that other people could have noticed; or the opposite, being so fidgety or restless that you have been moving around a lot more than usual: Nearly every day Thoughts that you would be b missael off or of hurting yourself in some way: Not at all Total Score: 15 Interpretation: Moderately Severe Depres radha Intervention Depression Screening Findings: P ositive Follow-Up for Depression: Peter mujica is admitted to a [place] residential unit where their mental health is monitored - unit nursing staff have access to this encounter note Summary Presents for ysical as patient is admitted to Residential Unit at [place]. Screening [place] Suicide Severity Rating Scale (LF) Do you want to initiate with: Screener form 1. Wish to be : Have you wished you were or wished you could go to sleep and not wake up?: No 2. Suicidal Thoughts: Have you actually had any thoughts of killing yourself?: No 6. Suicide Behavior Question: Have you ever done anything,started to do anything, or prepared to end your life?: No Interpretation:: Low Risk Preventative Health and Wellness follow-up Action Plans for Clinical Quality Measures: Breast Cancer Screening:: Not addressed during this visit. See notes for details. . Cervical Cancer Screening:: Not addressed during this visit. See notes for details. Colorectal Cancer Screening: : Not addressed during this visit. See notes for details. HIV Screening:: Not addressed during [facility] s visit. See notes for details. Tobacco Screening and Cessat ion:: Not addressed during this visit. See notes for details. CSSRS Interpretation and Follow Up Plan CSSRS Interpretation and Follow Up Plan CSSRS Screen documented using SF: Yes Risk Disposition from SF: Low - No Follo w Up Plan Required Follow Up Plan: No Follow Up Plan requir ed at this time. Timeframe of Screening: Today Examination Category Sub-Category Detail Notes Category Not es General Examination GENERAL APPEARANCE: 34 y/o C aucasian female , alert, well hydrated, in no acute distress , pleasant cooperative, well nourished HEAD: normocephalic , atra umatic EYES: BOTH EYES , extraocu lar movement full and smooth , pupils equal, round, reactive to light and accommodation, fundus normal, conjunctiva clear EARS BOTH EARS , auditory canal clear , tympanic membrane intact, clear, hearing intact to finger rub posterior to ear NOSE: nares patent , no le sions , sinuses nontender bilaterally THROAT: clear , no erythema , no exudate , pharynx normal , tonsils normal , uvula midline NECK/THYROID: neck supple, full ra nge of motion , no cervical lymphadenopathy , no thyromegaly , thyroid nontender , trachea midline HEART: regular rate and rhy thm , no murmurs, rubs, gallops CHEST: normal shape and exp ansion , no accessory muscle use LUNGS: respirations regular and easy , clear to auscultation bilaterally , no wheezes, rales, rhonchi , clear anteriorly and posteriorly , good air movement ABDOMEN: bowel sounds present , soft, nontender, nondistended , no organomegaly , , voluntary guarding NEUROLOGIC: cranial nerves 2-12 grossly intact , alert and oriented , neck supple, gait normal , normal muscle tone and strength , sensory exam intact , cooperative with exam , motor strength normal upper and lower extremities SKIN: warm and dry , no ra shes , no suspicious lesions , good turgor , normal hair distribution EXTREMITIES: full range of motion , good capillary refill in nail beds , no clubbing, cyanosis, or edema PERIPHERAL PULSES: 2+ radial , 2+ dorsa lis pedis , 2+ posterior tibial BACK: no CVA tenderness , full range of motion , spine nontender to palpation BREASTS: not examined MUSCULOSKELETAL: no joint deformity, swelling, redness, or warmth , MELISSA upper and lower extremities , full range of motion , full range of motion all joints MALE GENITOURINARY: not examined LYMPH NODES: no cervical adenopat hy RECTAL: not examined PSYCH: full range of affect /positive mood, good eye contact, alert, oriented x4, cognitive function intact, cooperative with exam, thought process logical, goal directed FEMALE GENITOURINARY: not applicable ORAL CAVITY: gums normal , palate normal , tongue in midline , posterior pharynx without erythema or exudate, carious teeth
--- OUTSIDE RECORDS SUMMARY | 2025-04-11 20:43 | XMS_ITS ---
Author Organization [facility] Address [address] [place] [address] Care Team Providers Care Putty Worker Name Role Phone Lesly Snell Primary Care Provider Phuong Toscano Unavailable [phone] REASON FOR VISIT Unit Admission Social History Sex Assigned At : Social History Observation Description Sex Assigned At Female PRAPARE Question Answer Notes Date Completed/Updated: 04/10/2025 What is your current housing situation? I do not have housing (staying with others, in a hotel, in a alf, living outside on the street, on a beach, or in a park) Are you worried about losing your housing? Yes What is the highest level of school that you have finished? High school diploma or GED What is your current work situation? Unemployed and seeking work In the past year, have you o r any family members you live with been unable to get any of the following when it was really needed? Check all that apply Food,Clothing,Utilities,Phone Has lack of transportation k ept you from medical appointments, meetings, work or from getting things needed for daily living? Yes, it has kept me from medical appointments or from getting my medications,Yes, it has kept me from non-medical meetings, appointments, work, or getting things needed for daily living How often do you see or talk to people that you care about and feel close to? (For example: talking to friends on the phone, visiting friends or family, going to baptism or club meetings) Less than once a week How stressed are you? Stress is when someone feels tense, nervous, anxious, or can\t sleep at night because their mind is troubled Somewhat In the past year have you sp ent more than 2 nights in a row in a longterm, skilled nursing, chcf center, or juvenile correctional facility? Yes What was your release date? 03/27/2025 Are you a refugee? I choose not to answer this q uestion What country are you from? I choose not to answe r this question Do you feel physically and e motionally safe where you currently live? No In the past year, have you b een afraid of your partner or ex-partner? Yes PRAPARE Score: 18 Enabling Services Provided? Yes Please specify Case Management Assessment First Visit Problems Problem Type SNOMED Code ICD Code Onset Dates Problem Status W/U Status Risk Notes Problem ADD (attention deficit disorder) (F90.0) Active confirmed Self- report diagnosis from childhood. Scheduled for psych eval. Encounters Encounter Location Date Provider Diagnosis [place] [address] [place] [address] 04/10/2025 Phuong Toscano Methamphetamine use disorder, moderate F15.20 and ADD (attention deficit disorder) F90.0 Assessments Encounter Date Diagnosis (ICD Code) Assessment Notes Treatment Notes Treatment Clinical Notes Section Notes 04/10/2025 Methamphetamine use disorder, moderate (ICD-10 - F15.20) 04/10/2025 ADD (attention deficit disorder) (ICD-10 - F90.0) Self- report diagnosis from childhood. Scheduled for psych eval. 04/10/2025 Other Clinician met w ith client to assess needs for residential services. Clinician gathered information regarding historical presentation of mental health and substance use symptoms including withdrawal, psychiatric hospitalization history and presenting concern. Clinician conducted PHQ9 and CSSRS assessments as well as social drivers of health screening for the purposes of identifying additional service needs. Plan Of Treatment Treatment Notes Assessment Notes Other Clinician met with boy lozano to assess needs for residential services. Clinician gathered information regarding historical presentation of mental health and substance use symptoms including withdrawal, psychiatric hospitalization history and presenting concern. Clinician conducted PHQ9 and CSSRS assessments as well as social drivers of health screening for the purposes of identifying additional service needs. Next Appt Details Follow Up: prn, Reason: Provider Name:Bria walls, 04/17/2025 09:20:00 AM, [address] [place], [address], Progress Notes * Lilian GIBBONS:1990 (34 yo F)Acc No.[id number]:04/10/2025 Patient: Shira FERNÁNDEZ Provider: Goldie Toscano LCSW :1990 A ge:34 Y S ex:Female Date:04/10/2025 Address:[place] [address] Pcp:Lesly Snell Subjective: * Chief Complaints: * U nit Admission * HPI: P sychiatric Assessment - Current Symptoms: Primary concern today A dmitting today for [facility]. O [place] of Mental Health Symptoms R ecently evicted, reports PTSD from losing children. Reports self-medicating with methamphetamine. Reports Really bad ADD exhibited by forgetfulness, inability to concentrate, feeling like a squirrel every day fidgety, walking alot, and generally f eeling antsy.Reports she was diagnosed with ADD as a child and medicated at that time. . H istory of Psychiatric and Behavioral Health Treatment N one reported outside of connection with Psych at recent ED visit.. S ubstance Use: Current Use Patterns M ethamphetamine use, started as taking small pieces orally. increased to injecting methamphetamine. Reported starting taking prescribed adderall at age 9. Difficulty getting it prescribed, moved to using methamphetamine. . S ubstance of Choice M ethamphetamine. H istory of substance use 2 -2.5 years. Hx of vicadin use. was able to get adderall prescribed while living in [place], unable to estbalish psych care upon return to [place], had a set back with methamphetamine.. H x of Withdrawal N one.? a TBC For Mental Health Services: Who Is Your Primary Care Provider? D o You Have A PCP? Y es Would like to establish at [facility] D ate of last physical exam -2024 Physical completed as part of admission.. D o You Have A Psychiatric Provider? D o You Have A Psychiatric Provider? Y es Odalys Mary.. D o You Have Any Other Professional Supports? D o You Have Any Other Professional Supports? N o. C onsent Forms Completed During Appointment C onsent Forms Completed N one Needed at this time. A ssessment of Social Determinants of Health::: Has A PRAPARE Been Completed In The Past Year? H as a PRAPARE Been Completed In The Past Year? Y es, W as It Completed Today Using [employer]? Y es.? D epression Screening: PHQ-9 L [...] lot more than usual N early every day,?Thoughts that you would be better off or of hurting yourself in some way N ot at all, Total Score 1 5, I nterpretation M oderately Severe Depression. I ntervention?Depression Screening Findings P ositive, F ollow-Up for Depression P tammy is admitted to a [facility] unit where their mental health is monitored - unit nursing staff have access to this encounter note. S creening: Nicholas Suicide Severity Rating Scale (LF) D o [...] N o, I nterpretation: L ow Risk. C SSRS Interpretation and Follow Up Plan: CSSRS Interpretation and Follow Up Plan C SSRS Screen documented using SF Y es, R isk Disposition from L ow - No Follow Up Plan Required, F ollow Up Plan N o Follow Up Plan required at this time., T imeframe of Screening T gaudencio.? * Medical History: * Surgical History: * Hospitalization/Major Diagno stic Procedure: * Social History: S ocial Determinants: P RAPARE D ate Completed/Updated: 0 04/10/2025, W hat is your current housing situation? I do not have housing (staying with others, in a hotel, in a alf, living outside on the street, on a beach, or in a park), A re you worried about losing your housing? Y es, W hat is the highest level of school that you have finished? H igh school diploma or GED, W hat is your current work situation? U nemployed and seeking work, I n the past year, have you or any family members you live with been unable to get any of the following when it was really needed? Check all that apply F ood,Clothing,Utilities,Phone, H as lack of transportation kept you from medical appointments, meetings, work or from getting things needed for daily living? Y es, it has kept me from medical appointments or from getting my medications,Yes, it has kept me from non-medical meetings, appointments, work, or getting things needed for daily living, H ow often do you see or talk to people that you care about and feel close to? (For example: talking to friends on the phone, visiting friends or family, going to baptism or club meetings) L ess than once a week, H ow stressed are you? Stress is when someone feels tense, nervous, anxious, or can\t sleep at night because their mind is troubled S omewhat, I n the past year have you spent more than 2 nights in a row in a longterm, skilled nursing, chcf center, or juvenile correctional facility? Y es, W hat was your release date? 0 03/27/2025, A re you a refugee? I choose not to answer this question, W hat country are you from? I choose not to answer this question, D o you feel physically and emotionally safe where you currently live? N o, I n the past year, have you been afraid of your partner or ex-partner? Mouna berman P ONEIDA Score: 1 8, E nabling Services Provided? Elijah Jackman specify C ase Management Assessment First Visit.? * Medications: Objective: * Vitals: * Examination: M ental Status Exam: ATTENTION AND CONCENTRATION N o deficits. APPEARANCE A ppropriate, Appears stated age. ATTITUDE AND BEHAVIOR C ooperative, Pleasant, Positive.? EYE CONTACT G ood. AFFECT B road/Full, Bright. MOOD E uthymic. INSIGHT F air. JUDGMENT F air. Assessment: * Assessment: 1. A DD (attention deficit disorder) - F90.0 N otes :Self- report diagnosis from childhood. Scheduled for psych eval. 2 . M ethamphetamine use disorder, moderate - F15.20 (Primary) ? Plan: * Treatment: * Procedure Codes: 9 0791 PSYCH DIAGNOSTIC EVALUATION, Modifiers: AJ CHS08 [facility] OpsyjelHUR71 Housing [id number] Referring to Recovery Auditor * Follow Up: p rn * * Sign off status: Completed true * Provider: Goldie Toscano, ACADEMIC REGISTRAR Date: 04/10/2025 Generated for Denton rojas/Bakari/Magnus on: 04/11/2025 08:43 PM CDT History and Physical Notes * HPI (History of Present Illness) Category Sub-Category Detail Notes Category Not es Depression Screening PHQ-9 Little inte rest or [...] down: Not at all Trouble concentrating on thi ngs, such as reading the newspaper or [...] Depression: Peter mujica is admitted to a [facility] unit where their mental health is monitored - unit nursing staff have access to this encounter note Psychiatric Assessment - Current Symptoms Primary concern today Admitting today for [facility] Overview of Mental Health Symptoms Recen tly evicted, reports PTSD from losing children. Reports self-medicating with methamphetamine. Reports Really bad ADD exhibited by forgetfulness, inability to concentrate, feeling like a squirrel every day fidgety, walking alot, and generally feeling antsy.Reports she was diagnosed with ADD as a child and medicated at that time. History of Psychiatric and B ehavioral Health Treatment None reported outside of connection with Psych at recent ED visit. Substance Use History of substance use 2-2.5 y ears. Hx of vicadin use. was able to get adderall prescribed while living in [place], unable to estbalish psych care upon return to [place], had a set back with methamphetamine. Hx of Withdrawal None Substance of Choice Methamphetamine Current Use Patterns Methamphetamine use , started as taking small pieces orally. increased to injecting methamphetamine. Reported starting taking prescribed adderall at age 9. Difficulty getting it prescribed, moved to using methamphetamine. Screening Nicholas Suicide Sev erity Rating Scale (LF) Do you want to [...] end your life?: No Interpretation:: Low Risk Assessment of Social Determinants of Health:: Has A PRAPARE Been Completed In The Past Year? Has a PRAPARE Been Completed In The Past Year?: Yes Was It Completed Today Using SmartForm?: Yes aT For Mental Health Services Who Is Your Primary Care Provider? Do You Have A PCP?: Yes Would like to establish at [facility]. Date of last physical exam: Phys ical completed as part of admission. Do You Have A Psychiatric Provider? Do Y ou Have A Psychiatric Provider?: Yes Odalys Mary. Do You Have Any Other Profes sional Supports? Do You Have Any Other Professional Supports?: No Consent Forms Completed Brigido rojas Appointment Consent Forms Completed: None Needed at this time CSSRS Interpretation and Follow Up Plan CSSRS Interpretation and Follow Up Plan CSSRS Screen documented using SF: Yes Risk Disposition from SF: Low - No Follo w Up Plan Required Follow Up Plan: No Follow Up Plan requir ed at this time. Timeframe of Screening: Today Examination Category Sub-Category Detail Notes Category Not es Mental Status Exam ATTENTION AND CONCENTRATION No defi cits APPEARANCE Appropriate, Appears stated age ATTITUDE AND BEHAVIOR Cooperative, Pleas ant, Positive EYE CONTACT Good AFFECT Broad/Full, Bright MOOD Euthymic INSIGHT Fair JUDGMENT Fair
--- OUTSIDE RECORDS SUMMARY | 2025-04-11 20:44 | XMS_ITS | Continuity of Care Document ---
Author Organization [facility] Address [address] [place] [address] [place] [address] Phone Care Team Providers Care Straight Edger Name Role Phone Ronald Rosas MD Unavailable Unavailable Allergies, Adverse Reactions, Alerts Substance Reaction Status Criticality No Known Allergies Active No Inform ation Medications Medication Instructions Dosage Effective Dates (start - stop) Status Comments omeprazole 20 mg capsule,delayed release take 1 capsule by oral route every day before a meal 20 MG - Active Procedures Procedure Date PREV VISIT, [facility], AGE 18-39 Advance Directives Directive Yes / No Effective Date File Name No Information Encounters Encounter Description Practice Location Reason(s) For Visit Diagnoses Date Provider Providers Copied on Encounter PREV VISIT, NEW, AGE 18-39 [facility], [address] [place], [place], [id number], tel:[phone] [facility] Physical (chief complaint) Routine Medical ExamDietary surveillance and counselingRoutine Medical Exam [address]. [address] [facility] [place], [place], [id number] , [place]. tel:[phone] Family History Family Member Type Diagnosis Age At Onset Mother Problem (finding) IBS Brother Problem (finding) Alive and well Father Problem (finding) Hyperlipidemia Payers Payer name Insurance type Covered libertarian ID Authoriza tion(s) No Information Social History Type Description Quantity Date Captured Comments Alcohol Use Details Caffeine Use Details Unknown Tobacco Use Status No Information Smoking Status Current every day smoker Smoking Tobacco Use Details Cigarette: No Details Available Cigarette: 0 Packs per day Sex Female Vital Signs Date / Time: Height Weight BMI Pulse Rate Blood Pressure Temperature Respiratory Rate Body Surface Area Head Circumference BMI percentile Pulse Ox Inhaled Ox 5:21 PM 66.20 in 279.00 lbs 44.7 6 kg/m eter (2) 104 /min 135/80 mm[Hg] 98.2 F 18 /min Chief Complaint And Reason For Visit From encounter dated '01/03/2015 17:21'. Physical (chief complaint) Plan Of Treatment Date Type Action Status Goal Tobacco cessation counseling completed Referral Ordered: US EXAM, ABDOM, COMPLETE ordered History Of Present Illness Encounter Date Complaint History Of Prese nt Illness No Information Instructions Date Instruction Additional Infor mation Physical activity counseling Rel ated to Dietary surveillance counseling Decrease caloric intake Related to Dietary surveillance counseling Assessments Type Assessment Date No Information Mental Status Date Cognitive Assessment Orientation - Wilmer ed to time, place, person, situation.
--- OUTSIDE RECORDS SUMMARY | 2025-04-11 20:44 | XMS_ITS | Patient Health Record ---
Author Organization [facility] Address [address] [place] [address] Care Team Providers Care Diversified Crops Supervisor Name Role Phone CirorLesly Primary Care Provider Phuong Toscano Unavailable [phone] Allergies No Known Allergies Reason For Referral No Information Medications Medication SIG (Take, Route, Frequency, Duration) Notes Start Date End Date Status Nicotine Polacrilex 4 MG Chew 1 piece as needed for nicotine cravings Mouth/Throat up to every hour (max of 20 pieces per day); Duration: 7 days 04/10/2025 Active Prazosin HCl 1 MG 1 capsule at bedtime Orally Once a day Active hydrOXYzine Pamoate 25 MG 1 capsule at b edtime as needed Orally Once a day Active Daily Vitamin Active Nicotine Step 1 21 MG/24HR 1 patch to sk in Transdermal Once a day Active Nicotine Polacrilex Mini 2 MG as directed Mouth/Throat Act evelyne Prazosin HCl 2 MG 1 capsule at [...] with others, in a hotel, in a halfway, living outside on the street, on a [...] phone, visiting friends or family, going to jehovah's witness or club meetings) Less than once a week How stressed are you? Stress is when someone feels tense, nervous, anxious, or can\t sleep at night because their mind is troubled Somewhat In the past year have you sp ent more than 2 nights in a row in a [place] [facility] [place], residential, residential center, or juvenile correctional facility? Yes What [...] Problem Status W/U Status Risk Notes Problem Attention deficit disorder (13903096) ADD (attention deficit disorder) (F90.0) Active confirmed Self- report diagnosis from childhood. Scheduled for psych eval. Problem Overweight (019882677) Over weight (E66.3) Active confirmed Problem Stimulant dependence (768856188) Methamphetamine use disorder, moderate (F15.20) Active confirmed Vital Signs Heart Rate 96 /min 04/10/2025 Temperature 98.1 degrees Fahrenheit 04/10/2025 Respiratory Rate 20 /min 04/10/2025 Oximetry 100 % 04/10/2025 Blood pressure diastolic 80 mm Hg 04/10/2025 Height 65 in 04/10/2025 Blood pressure systolic 138 mm Hg 04/10/2025 Weight 160 lbs 04/10/2025 BMI 26.62 kg/m2 04/10/2025 Encounters Encounter Location Date Provider Diagnosis [facility] [address] [place] [address] 04/10/2025 Lesly Snell Encounter for adult wellness visit Z00.00 ; Methamphetamine use disorder, moderate F15.20 and Over weight E66.3 [facility] [address] [place] [address] 04/10/2025 Phuong Toscano Methamphetamine use disorder, moderate F15.20 and ADD (attention deficit disorder) F90.0 Assessments Encounter Date Diagnosis (ICD Code) Assessment Notes Treatment Notes Treatment Clinical Notes Section Notes 04/10/2025 Methamphetamine use disorder, moderate (ICD-10 - F15.20) SUPR Programs: Based on an evaluation of [facility] Patient Placement Criteria, a recommendation for placement [...] through bandages. - treatment per recommendations 04/10/2025 Encounter for adult wellness visit (ICD-10 - Z00.00) Continue treatment as recommended by [facility] staff. Encouraged patient to obtain routine medical care with patient's own primary care provider or establish as a patient at [facility] if no current primary care provider. -presented for physical for admission to [facility], exam completed, stable for admission 04/10/2025 ADD (attention deficit disorder) (ICD-10 - F90.0) Self- report diagnosis from childhood. Scheduled for psych eval. 04/10/2025 Methamphetamine use disorder, moderate (ICD-10 - F15.20) 04/10/2025 Over weight (ICD-10 - E66.3) 04/10/2025 Other 04/10/2025 Other Clinician met w ith client to assess needs for residential services. Clinician gathered information regarding historical presentation of mental health and substance use symptoms including withdrawal, psychiatric hospitalization history and presenting concern. Clinician conducted PHQ9 and CSSRS assessments as well as social drivers of health screening for the purposes of identifying additional service needs. Plan Of Treatment Future Test Test Name Order Date QuantiFERON-TB Gold Plus ([id number]) 2024 Next Appt Details Provider Name:Briajodi Rankin agaclark, 04/17/2025 09:20:00 AM, [address] [place] [address], [id number], Insurance Providers Payer Name Payer Address Payer Phone Subscriber Number Group Number Insured Name Patient Relationship to Insured Coverage Start Date Coverage End Date [facility] [address] [place] [phone] [id number] Shira Hairston Self - patient is the insured 5 [facility] [address] [place] [address] [id number] Shira Hairston Self - patient is the insured 5 Medical (General) History Medical History History ICD Code ADD Surgical History Surgery Date(Month/Year) Hospitalization History Reason Date(Month/Year) [facility] 03/2025
[2025-04-11 20:47] LABS: Troponin I < 0.012 ng/mL (0.000-0.034)
[2025-04-11 21:07] LABS: Creatine Kinase 2255 U/L (30-135)
[2025-04-11 21:55] VITALS: BP 109/58; PULSE 98; RESP 15; O2SAT 100
[2025-04-11] MEDS: APIXABAN 5 MG TABLET 10 MG PO (22:53)
[2025-04-11 22:55] VITALS: BP 126/83; PULSE 94; RESP 16; O2SAT 100
[2025-04-11 23:06] LABS: Creatine Kinase 1499 U/L (30-135)
[2025-04-11 23:35] LABS: Troponin I < 0.012 ng/mL (0.000-0.034)
[2025-04-12] VITALS (28 sets, daily range): BP systolic 105–130; BP diastolic 67–92; PULSE 68–98; RESP 0–27; TEMP 36.8–37.2; O2SAT 99–100; BMI 29.8
[2025-04-12] MEDS: LACTATED RINGERS 1,000 ML 150 ML IV CONT ×3 (00:22→16:44)
--- NOTE | 2025-04-12 04:45 | P.HP_ITS ---
H&P: HPI History of Present Illness Date/Time: 04/12/25 04:45 Chief Complaint: Swollen right arm and swelling the right leg and shortness of breath Narrative: 34[facility] of [facility]ness of breath, right swollen arm and leg with associated paresthesia for male without to the wrist. Reported a headache which was relieved with Tylenol. Of note, the patient was hospitalized at [facility] for heat exhaustion and dehydration since discharge on 04/07/2025. Reports she had a high D-dimer at that time and had a CT scan of the chest which was negative but ultrasounds were not done. On arrival patient had tachycardia which did resolve. Saturating well on room air. After arrival She was no longer complaining of paresthesia or shortness of breath. A chest x-ray was without acute disease. Bilateral lower extremity Doppler ultrasound without DVT. Bilateral upper extremity venous Doppler demonstrated a noncompressible thrombus in the left brachial basilic and ulnar veins. Chest CTA did not demonstrate PE or any other acute disease. In the ER she was administer 2 L lactated Ringer's, morphine 4 mg IV x1, apixaban 10 mg p.o. x1. Started on lactated Ringer's at 150 cc per hour. Review of Systems Review of Systems: All systems reviewed & are unremarkable except as noted in HPI and below (Subjective) [facility] Past Medical History Medical History (Updated 04/12/25 @ 04:56 by Claudia Haas MD) Venous thrombosis of upper extremity Left brachial, basilic, ulnar vein diagnosis on 04/11/2025 Meds Home Medications and Allergies Allergies Allergy/AdvReac Type Severity Reaction Status Date / Time No Known Allergies Allergy Verified 04/11/25 19:36 Vital Signs Vital Signs - 24 hr 04/11/25 19:38 04/11/25 20:00 04/11/25 20:40 Temperature 98.2 F Pulse Rate 137 H 125 H 102 H Respiratory Rate 18 Blood Pressure 113/72 Pulse Oximetry 100 Oxygen Delivery Room Air 04/11/25 21:55 04/11/25 22:55 04/12/25 01:06 Temperature Pulse Rate 98 94 90 Respiratory Rate 15 16 18 Blood Pressure 109/58 L 126/83 115/67 Pulse Oximetry 100 100 Oxygen Delivery 04/12/25 01:31 04/12/25 02:01 04/12/25 02:31 Temperature Pulse Rate 88 79 83 Respiratory Rate 17 20 16 Blood Pressure 111/78 107/78 105/69 Pulse Oximetry 99 100 99 Oxygen Delivery Exam Const: General: comfortable and no acute distress HENMT: Mouth: Yes moist mucous membranes Eyes: Pupils: Equal, round and reactive pupils present Neck: Neck: supple Resp: Effort & Inspection: normal respiratory effort Auscultation: clear to auscultation bilaterally Cardio: Rate: regular rate Rhythm: regular rhythm GI: Inspection: non-distended GI Palp: Yes Soft to palpation : General: Yes bladder normal to palpation Neuro: Motor exam (neuro): 5/5 motor strength present throughout Sensory Exam: normal sensation Extrem: General: no edema H&P: Results Labs Labs: Short CBC 04/11/25 Range/Units 20:07 WBC 9.5 (4.5-10.0) K/mm3 Hgb 12.0 (12.0-15.0) g/dL Hct 38.0 (37.0-47.0) % Plt Count 333 (150-375) k/mm3 BMP 04/11/25 20:07 Sodium 138 Potassium 4.6 Chloride 106 Carbon Dioxide 26 BUN 15 Creatinine 0.75 Glucose 86 Calcium 9.2 Cardiac Enzymes 04/11/25 04/11/25 Range/Units 20:07 22:41 Total Creatine Kinase 2255 H 1499 H (30-135) U/L Troponin I < 0.012 < 0.012 (0.000-0.034) ng/mL Liver Function 04/11/25 Range/Units 20:07 Total Bilirubin 0.2 (0.2-1.3) mg/dL AST 67 H (14-36) U/L ALT 88 H (6-35) U/L Alkaline Phosphatase 70 (38-126) U/L Albumin 3.7 (3.5-5.1) g/dL Assessment and Plan Assessment and plan (1) Venous thrombosis of upper extremity: Code(s): I82.609 - Acute embolism and thrombosis of unspecified veins of unspecified upper extremity Status: Acute (2) Rhabdomyolysis: Code(s): M62.82 - Rhabdomyolysis Status: Acute Plan 34-year-old [facility] of shortness of breath, right swollen arm and leg with associated paresthesia for male without to the wrist. Reported a headache which was relieved with Tylenol. Of note, the patient was hospitalized at [facility] for heat exhaustion and dehydration since discharge on 04/07/2025. Reports she had a high D-dimer at that time and had a CT scan of the chest which was negative but ultrasounds were not done. On arrival patient had tachycardia which did resolve. Saturating well on room air. After arrival She was no longer complaining of paresthesia or shortness of breath. A chest x-ray was without acute disease. Bilateral lower extremity Doppler ultrasound without DVT. Bilateral upper extremity venous Doppler demonstrated a noncompressible thrombus in the left brachial basilic and ulnar veins. Chest CTA did not demonstrate PE or any other acute disease. In the ER she was administer 2 L lactated Ringer's, morphine 4 mg IV x1, apixaban 10 mg p.o. x1. Started on lactated Ringer's at 150 cc per hour. ----- Her elevated CPK could represent incomplete resolution of rhabdomyolysis from recent prior admission at [facility]. CPK admission 2255, improving to 1499 after 2 L lactated Ringer's. Continue LR 150 cc/hour. Continue to trend CPK and renal function. Lactic acidosis improved from 2.[address] head without contrast to rule out CVA. Continue Eliquis for left upper extremity venous thrombosis. Adverse effects, risks versus benefits discussed and patient would like to proceed. Full code. Eliquis. LR. Regular diet. Hospitalist MIPS Advance Care Plan I have confirmed that the patient's Advanced Care Plan is present, code status is documented, or surrogate decision maker is listed in patient medical record.: Yes Medication Reconciliation I have utilized all available resources to obtain, update and review the patients current medications (includes all prescriptions, OTC, herbals, cannabis, and nutritional supplements).: Yes
[2025-04-12 05:26] LABS: Hematocrit 34.5 % (37.0-47.0); Hemoglobin 10.9 g/dL (12.0-15.0); Mean Corpuscular HGB Conc 31.6 g/dl (32-36); Mean Corpuscular Hemoglobin 28.7 pg (26-34); Mean Corpuscular Volume 90.8 fl (80-100); Platelet Count Result 284 k/mm3 (150-375); Red Blood Count 3.80 M/mm3 (4.2-5.4); White Blood Count 6.8 K/mm3 (4.5-10.0)
[2025-04-12 05:48] LABS: Creatine Kinase 1138 U/L (30-135)
[2025-04-12 06:00] LABS: Alanine Aminotransferase 70 U/L (6-35); Albumin Level 3.1 g/dL (3.5-5.1); Alkaline Phosphatase 55 U/L (38-126); Anion Gap 2 mmol/L (4-12); Aspartate Amino Transferase 49 U/L (14-36); Bilirubin,Total 0.3 mg/dL (0.2-1.3); Blood Urea Nitrogen 12 mg/dL (7-17); Calcium 8.4 mg/dL (8.4-10.2); Carbon Dioxide 26 mmol/L (22-30); Chloride 105 mmol/L (98-107); Estimated CRCL calculation 122 ml/min; Estimated Glomerular Filt Rate > 60; Glucose 82 mg/dL (65-110); Magnesium 1.8 mg/dL (1.6-2.3); Potassium 3.8 mmol/L (3.4-5.0); Sodium 133 mmol/L (137-145); Total Protein 5.8 g/dL (6.3-8.2)
--- NOTE | 2025-04-12 08:07 | ADMGEN ---
This patient, Shira Hairston, was admitted to 3 [facility] Surg Room 320-01. Patient/family oriented to hospital policies and general routines including ID bracelet, bed and alarms, visiting hours, pain management, procedures, bathroom and other care routines, personal items, smoking policy, room service/diet, and visiting hours. Information on how to activate the Rapid Response Team has been discussed. Patient/Family are encouraged to report perceived risks to care and to ask questions if they do not understand what they are told or what they should do.
[2025-04-12] MEDS: APIXABAN 5 MG TABLET 10 MG PO ×2 (09:13→21:26)
--- NOTE | 2025-04-12 12:31 | PM.IMPN ---
Progress Note: A&P Assessment and Plan (1) Venous thrombosis of upper extremity: Code(s): I82.609 - Acute embolism and thrombosis of unspecified veins of unspecified upper extremity Status: Acute (2) Rhabdomyolysis: Code(s): M62.82 - Rhabdomyolysis Status: Acute Plan rhabdomyolysis. continue with IVF. follow CK level. L Arm DVT. found on US. CTA neg for pE. lower ext neg for DVT On Eliquis. continue to monitor lactic acidosis improved mild hyponatremia continue to monitor Subjective Date/time seen: 04/12/25 12:31 Interval history: per HPi: 34[facility] breath, right swollen arm and leg with associated paresthesia for male without to the wrist. Reported a headache which was relieved with Tylenol. Of note, the patient was hospitalized at [facility] for heat exhaustion and dehydration since discharge on 04/07/2025. Reports she had a high D-dimer at that time and had a CT scan of the chest which was negative but ultrasounds were not done. On arrival patient had tachycardia which did resolve. Saturating well on room air. After arrival She was no longer complaining of paresthesia or shortness of breath. A chest x-ray was without acute disease. Bilateral lower extremity Doppler ultrasound without DVT. Bilateral upper extremity venous Doppler demonstrated a noncompressible thrombus in the left brachial basilic and ulnar veins. Chest CTA did not demonstrate PE or any other acute disease. In the ER she was administer 2 L lactated Ringer's, morphine 4 mg IV x1, apixaban 10 mg p.o. x1. Started on lactated Ringer's at 150 cc per hour. 04/12/25 Patient was seen and examined at bedside. she is feeling better. denies any chest pain, SOB, abd pain, N/V. HAd episode of Sinus tach last night. Has rhabdomyolysis. continue with IVF. Has LArm DVT. On Eliquis. Review of Systems Review of Systems: All systems reviewed & are unremarkable except as noted in HPI and below (Subjective) Exam Const: General: comfortable and no acute distress HENMT: Mouth: Yes moist mucous membranes Eyes: Pupils: Equal, round and reactive pupils present Neck: Neck: supple Resp: Effort & Inspection: normal respiratory effort Auscultation: clear to auscultation bilaterally Cardio: Rate: regular rate Rhythm: regular rhythm GI: Inspection: non-distended : General: Yes bladder normal to palpation Bimanual exam- vagina & uterus: bladder normal to palpation Neuro: Cranial nerves: Yes Equal, round and reactive pupils present Motor exam (neuro): 5/5 motor strength present throughout Sensory Exam: normal sensation Extrem: General: no edema Objective Data Vital Signs Vital Signs: Vital Signs - 24 hr 04/11/25 19:38 04/11/25 20:00 04/11/25 20:40 Temperature 98.2 F Pulse Rate 137 H 125 H 102 H Respiratory Rate 18 Blood Pressure 113/72 Pulse Oximetry 100 Oxygen Delivery Room Air 04/11/25 21:55 04/11/25 22:55 04/12/25 01:06 Temperature Pulse Rate 98 94 90 Respiratory Rate 15 16 18 Blood Pressure 109/58 L 126/83 115/67 Pulse Oximetry 100 100 Oxygen Delivery 04/12/25 01:31 04/12/25 02:01 04/12/25 02:31 Temperature Pulse Rate 88 79 83 Respiratory Rate 17 20 16 Blood Pressure 111/78 107/78 105/69 Pulse Oximetry 99 100 99 Oxygen Delivery 04/12/25 04:27 04/12/25 04:30 04/12/25 05:11 Temperature Pulse Rate 81 82 77 Respiratory Rate 17 21 H 20 Blood Pressure Pulse Oximetry 100 100 100 Oxygen Delivery 04/12/25 05:15 04/12/25 05:30 04/12/25 05:31 Temperature Pulse Rate 75 71 68 Respiratory Rate 11 L 0 L 9 L Blood Pressure 130/89 Pulse Oximetry 100 99 100 Oxygen Delivery 04/12/25 05:45 04/12/25 06:00 04/12/25 06:01 Temperature Pulse Rate 72 69 72 Respiratory Rate 17 15 19 Blood Pressure 112/92 H Pulse Oximetry 100 100 100 Oxygen Delivery 04/12/25 06:15 04/12/25 06:30 04/12/25 06:31 Temperature Pulse Rate 98 73 74 Respiratory Rate 27 H 17 14 Blood Pressure 116/89 Pulse Oximetry 100 100 100 Oxygen Delivery 04/12/25 06:45 04/12/25 07:00 04/12/25 07:01 Temperature Pulse Rate 74 78 76 Respiratory Rate 17 16 16 Blood Pressure 118/88 Pulse Oximetry 100 Oxygen Delivery 04/12/25 07:15 04/12/25 07:32 Temperature Pulse Rate 76 70 Respiratory Rate 17 14 Blood Pressure 122/68 Pulse Oximetry 100 Oxygen Delivery Intake/Output Intake/Output: Intake & Output 04/09/25 04/10/25 04/11/25 04/12/25 23:59 23:59 23:59 23:59 Intake Total 1999 1240 Balance 1999 1240 Meds/Results Medications: Active Medications Generic Name Dose Route Start Last Admin Trade Name Freq PRN Reason Stop Dose Admin Acetaminophen 650 mg 04/11/25 23:58 Acetaminophen 325 Mg Tablet PO Q4H PRN Mild Pain (1-3) or Fever Apixaban 10 mg 04/12/25 09:00 04/12/25 09:13 Apixaban 5 Mg Tablet PO 04/18/25 09:01 10 mg Q12HR IZABEL Administration Lactated Ringer's 1,000 mls @ 150 mls/hr 04/11/25 23:45 04/12/25 09:12 Lr - Lactated Ringers Iv IV CONT 150 mls/hr .[id number] IZABEL Administration Ondansetron HCl 4 mg 04/11/25 23:58 Ondansetron Inj 4 Mg/2 Ml Vial IV PUSH Q4H PRN Nausea Radiology Results: ITS Impressions Chest X-Ray 04/11/25 20:15 IMPRESSION: 1. No acute cardiopulmonary disease. Venous Doppler Study 04/11/25 21:38 IMPRESSION: 1. No deep venous thrombosis in either lower limb. Chest CTA 04/11/25 22:07 IMPRESSION: 1. No pulmonary embolism or other acute cardiopulmonary disease. Head CT 04/12/25 06:03 Impression: No significant abnormality seen. Labs Labs: Laboratory Results - last 24 hr 04/11/25 04/11/25 04/12/25 20:07 22:41 00:22 WBC 9.5 RBC 4.19 L Hgb 12.0 Hct 38.0 MCV 90.7 MCH 28.6 MCHC 31.6 L RDW 13.7 Plt Count 333 MPV 8.4 Immature Gran % (Auto) 0.3 Neut % (Auto) 63.3 Lymph % (Auto) 27.1 [place] % (Auto) 6.6 Eos % (Auto) 1.9 Baso % (Auto) 0.8 Lymph # (Auto) 2.58 [place] # (Auto) 0.6 Eos # (Auto) 0.2 Baso # (Auto) 0.1 Abs Immat Gran (auto) 0.03 Absolute Neuts (auto) 6.0 Absolute Nucleated RBC 0.000 Nucleated RBC % 0.0 PT 11.8 INR 0.8 APTT 24.9 Sodium 138 Potassium 4.6 Chloride 106 Carbon Dioxide 26 Anion Gap 6 BUN 15 Creatinine 0.75 Estim Creat Clear Calc 93 Estimated GFR > 60 Glucose 86 Lactic Acid 2.3 H 1.2 Calcium 9.2 Magnesium Total Bilirubin 0.2 AST 67 H ALT 88 H Alkaline Phosphatase 70 Total Creatine Kinase 2255 H 1499 H Troponin I < 0.012 < 0.012 Total Protein 6.9 Albumin 3.7 Lipase 211 04/12/25 05:16 WBC 6.8 RBC 3.80 L Hgb 10.9 L Hct 34.5 L MCV 90.8 MCH 28.7 MCHC 31.6 L RDW 13.8 Plt Count 284 MPV 8.6 Immature Gran % (Auto) Neut % (Auto) Lymph % (Auto) [place] % (Auto) Eos % (Auto) Baso % (Auto) Lymph # (Auto) [place] # (Auto) Eos # (Auto) Baso # (Auto) Abs Immat Gran (auto) Absolute Neuts (auto) Absolute Nucleated RBC Nucleated RBC % PT INR APTT Sodium 133 L Potassium 3.8 Chloride 105 Carbon Dioxide 26 Anion Gap 2 L BUN 12 Creatinine 0.56 L Estim Creat Clear Calc 122 Estimated GFR > 60 Glucose 82 Lactic Acid Calcium 8.4 Magnesium 1.8 Total Bilirubin 0.3 AST 49 H ALT 70 H Alkaline Phosphatase 55 Total Creatine Kinase 1138 H Troponin I Total Protein 5.8 L Albumin 3.1 L Lipase
[2025-04-12 13:59] LABS: Influenza A QL RT-PCR Negative (Negative); Influenza B QL RT-PCR Negative (Negative); RSV RNA, RT-PCR Negative (Negative); SARS-CoV-2 RNA PCR Negative (Negative)
[2025-04-12] MEDS: ACETAMINOPHEN 325 MG TABLET 650 MG PO ×2 (14:42→21:25)
[2025-04-12] MEDS: NICOTINE (*PBKC) 21 MG PATCH 1 PATCH TRANSDERM (21:21)
[2025-04-12] MEDS: PRAZOSIN HCL 1 MG CAPSULE 2 MG PO (21:27)
[2025-04-13] VITALS (9 sets, daily range): BP systolic 120–147; BP diastolic 86–94; PULSE 83–108; RESP 16–19; TEMP 36.4–36.8; O2SAT 99–100
--- NOTE | 2025-04-13 | ECHO_ITS ---
Patient Info Name: Shira Hairston Age: 34 years : 1990 Gender: Female Ht: 65 in Wt: 179 lbs BSA: 1.95 m2 HR: 108 bpm BP: 132 / 92 mmHg Technical Quality: Good Exam Date: 04/13/2025 3:19 PM Patient Status: I Admit Date: 04/13/2025 Exam Type: CA echo dop color flow w con Complete two-dimensional, color flow and Doppler transthoracic echocardiogram is performed with contrast to opacify the left ventricle and to improve the deliniation of the left ventricle endocardial borders. Staff Referring Physician: Judy Gutierrez Welder Apprentice Combination: Migdalia Hogue Attending Provider: Claudia Haas Contrast/Agitated Saline Contrast/Ag. Saline: Definity Amount: 2.00 ml Administered By: Migdalia Hgoue Existing IV Access: Yes IV Access Condition: patent with no signs of infiltration Summary 1. Normal 2D echocardiogram. 2. Doppler study demonstrating a trace of mitral regurgitation, valve appears structurally normal. Left Ventricle Left ventricular systolic function is normal, estimated at 60-65. The left ventricular diastolic function is normal. Right Ventricle Right ventricular chamber dimension is normal. Left Atria Left atrial chamber dimension is normal. Right Atria Right atrial chamber dimension is normal. Aortic Valve The aortic valve is normal. Pulmonic Valve The pulmonic valve is normal. Mitral Valve The mitral valve has normal leaflets. There is trace mitral valve regurgitation. Tricuspid Valve The tricuspid valve leaflets are normal. Pericardium/Pleural The pericardium appears normal. Aorta The aortic root size at the sinus of Valsalva is normal. Left Ventricular Outflow Tract Name Value Normal LVOT 2D LVOT Diameter 2.0 cm LVOT Doppler LVOT Peak Velocity 107 cm/s LVOT Peak Gradient 5 mmHg LVOT Mean Gradient 2 mmHg LVOT VTI 18 cm LVOT VTI/AV VTI Ratio 0.9 LVOT Stroke Volume 58 ml LVOT CO 5.2 l/min LVOT CI 2.6 l/min/m2 Pulmonic Valve Name Value Normal PV Doppler PV Peak Velocity 110 cm/s PV Peak Gradient 5 mmHg Mitral Valve Name Value Normal MV Regurgitation Doppler MR Peak Gradient 79 mmHg MV Diastolic Function MV E Peak Velocity 106 cm/s MV A Peak Velocity 59 cm/s MV E/A 1.8 MV Decel Time (PW) 148 ms MV Annular TDI MV E/e' (Septal) 11.0 MV E/e' (Lateral) 7.3 MV E/e' (Average) 9.1 Tricuspid Valve Name Value Normal TV Annular TDI TV Lateral Luh s' Velocity 13.4 cm/s >=9.5 Aortic Valve Name Value Normal AV Doppler AV Peak Velocity 115 cm/s AV Peak Gradient 5 mmHg AV Mean Gradient 3 mmHg AV VTI 21 cm AV Area (Cont Eq VTI) 2.8 cm2 >=3.0 AV Area (Cont Eq Carlos) 3.0 cm2 AV DI (Carlos) 0.93 AV Regurgitation 2D LVOT Area 3.2 cm2 Ventricles Name Value Normal LV Dimensions 2D/MM IVS Diastolic Thickness (2D) 0.9 cm 0.6-1.0 LVID Diastole (2D) 4.9 cm 3.8-5.2 LVIW Diastolic Thickness (2D) 0.9 cm 0.6-0.9 LVID Systole (2D) 3.3 cm 2.2-3.5 LVOT Diameter 2.0 cm LV Mass (2D Cubed) 152.59 g 67.00-162.00 LV Mass Index (2D Cubed) 78 g/m2 43-95 Relative Wall Thickness (2D) 0.37 <=0.42 LV Fractional Shortening/Ejection Fraction 2D/MM LV Fractional Shortening (2D) 34 % 27-45 LV EF (2D Teichholz) 62 % LV Diastolic Volume (4C MOD) 123 ml LV EF (4C MOD) 52 % LV Diastolic Volume (2C MOD) 123 ml LV EF (2C MOD) 52 % LV Diastolic Volume (BP MOD) 127 ml 46-106 LV Diastolic Volume Index (BP MOD) 65 ml/m2 29-61 LV Systolic Volume (BP MOD) 59 ml 14-42 LV Systolic Volume Index (BP MOD) 30 ml/m2 8-24 LV EF (BP MOD) 54 % 54-74 LV Diastolic Length (4C) 8.1 cm LV Systolic Length (4C) 6.9 cm LV Stroke Volume (4C MOD) 64 ml Atria Name Value Normal LA Dimensions LA Volume (4C A-L) 35 ml LA Volume (BP A-L) 38 ml RA Dimensions RA Systolic Major [place] Length (4C) 4.3 cm 2.2-2.8 RA Area (4C) 11.4 cm2 <=18.0 Report Signatures
[2025-04-13] MEDS: LACTATED RINGERS 1,000 ML 150 ML IV CONT ×4 (00:23→23:40)
[2025-04-13] MEDS: ACETAMINOPHEN 325 MG TABLET 650 MG PO (03:54)
[2025-04-13] MEDS: traMADol HCL (*CRX) 25 MG TABLET PO (06:08)
[2025-04-13 06:12] LABS: Hematocrit 34.9 % (37.0-47.0); Hemoglobin 10.9 g/dL (12.0-15.0); Mean Corpuscular HGB Conc 31.2 g/dl (32-36); Mean Corpuscular Hemoglobin 28.5 pg (26-34); Mean Corpuscular Volume 91.4 fl (80-100); Platelet Count Result 302 k/mm3 (150-375); Red Blood Count 3.82 M/mm3 (4.2-5.4); White Blood Count 6.1 K/mm3 (4.5-10.0)
[2025-04-13 06:37] LABS: Anion Gap 4 mmol/L (4-12); Blood Urea Nitrogen 9 mg/dL (7-17); Calcium 8.6 mg/dL (8.4-10.2); Carbon Dioxide 25 mmol/L (22-30); Chloride 106 mmol/L (98-107); Creatine Kinase 1166 U/L (30-135); Estimated CRCL calculation 115 ml/min; Estimated Glomerular Filt Rate > 60; Glucose 86 mg/dL (65-110); Potassium 3.7 mmol/L (3.4-5.0); Sodium 135 mmol/L (137-145)
[2025-04-13] MEDS: PRAZOSIN HCL 1 MG CAPSULE PO (09:43)
[2025-04-13] MEDS: APIXABAN 5 MG TABLET 10 MG PO ×2 (09:43→20:48)
[2025-04-13] MEDS: NICOTINE (*PBKC) 21 MG PATCH 1 PATCH TRANSDERM (09:44)
[2025-04-13] MEDS: ACETAMINOPHEN/BUTALBITAL/CAFFEINE 325-50-40 MG TABLET (FIORICET) 1 TAB PO ×2 (11:04→23:38)
--- NOTE | 2025-04-13 13:12 | P.PNIM_ITS ---
Progress Note: A&P Assessment and Plan (1) Venous thrombosis of upper extremity: Code(s): I82.609 - Acute embolism and thrombosis of unspecified veins of unspecified upper extremity Status: Acute (2) Rhabdomyolysis: Code(s): M62.82 - Rhabdomyolysis Status: Acute Plan rhabdomyolysis. continue with IVF. follow CK level. L Arm DVT. found on US. CTA neg for pE. lower ext neg for DVT On Eliquis. continue to monitor lactic acidosis improved mild hyponatremia continue to monitor abd pain will check CMP continue to monitor sinus tach with activity will get Echo continue IVF continue to monitor Subjective Date/time seen: 04/13/25 13:12 Interval history: per HPi: 34[facility], right swollen arm and leg with associated paresthesia for male without to the wrist. Reported a headache which was relieved with Tylenol. Of note, the patient was hospitalized at [facility] for heat exhaustion and dehydration since discharge on 04/07/2025. Reports she had a high D-dimer at that time and had a CT scan of the chest which was negative but ultrasounds were not done. On arrival patient had tachycardia which did resolve. Saturating well on room air. After arrival She was no longer complaining of paresthesia or shortness of breath. A chest x-ray was without acute disease. Bilateral lower extremity Doppler ultrasound without DVT. Bilateral upper extremity venous Doppler demonstrated a noncompressible thrombus in the left brachial basilic and ulnar veins. Chest CTA did not demonstrate PE or any other acute disease. In the ER she was administer 2 L lactated Ringer's, morphine 4 mg IV x1, apixaban 10 mg p.o. x1. Started on lactated Ringer's at 150 cc per hour. 04/12/25 Patient was seen and examined at bedside. she is feeling better. denies any chest pain, SOB, abd pain, N/V. HAd episode of Sinus tach last night. Has rhabdomyolysis. continue with IVF. Has LArm DVT. On Eliquis. 04/13/25 Patient was seen and examined at bedside. she is feeling fine. denied abd pain, N/V. no acute event overnight Still has elevated CK. will continue IVF. Later this morning complained RUQ pain. will get CMP. Review of Systems Review of Systems: All systems reviewed & are unremarkable except as noted in HPI and below (Subjective) Exam Const: General: comfortable and no acute distress HENMT: Mouth: Yes moist mucous membranes Eyes: Pupils: Equal, round and reactive pupils present Neck: Neck: supple Resp: Effort & Inspection: normal respiratory effort Auscultation: clear to auscultation bilaterally Cardio: Rate: regular rate Rhythm: regular rhythm GI: Inspection: non-distended : General: Yes bladder normal to palpation Bimanual exam- vagina & uterus: bladder normal to palpation Neuro: Cranial nerves: Yes Equal, round and reactive pupils present Motor exam (neuro): 5/5 motor strength present throughout Sensory Exam: normal sensation Extrem: General: no edema Objective Data Vital Signs Vital Signs: Vital Signs - 24 hr 04/12/25 14:00 04/12/25 16:44 04/12/25 20:00 Temperature 99.0 F Pulse Rate 81 89 89 Respiratory Rate 18 18 Blood Pressure 125/72 Pulse Oximetry 99 99 Oxygen Delivery Room Air 04/12/25 20:00 04/12/25 21:12 04/12/25 22:00 Temperature 98.3 F Pulse Rate 89 83 Respiratory Rate 16 Blood Pressure 123/88 Pulse Oximetry 100 100 Oxygen Delivery Room Air 04/13/25 04:00 04/13/25 05:49 Temperature 98.3 F Pulse Rate 86 83 Respiratory Rate 16 Blood Pressure 120/86 Pulse Oximetry 100 Oxygen Delivery Intake/Output Intake/Output: Intake & Output 04/10/25 04/11/25 04/12/25 04/13/25 23:59 23:59 23:59 23:59 Intake Total 1999 8280 5385 Balance 1999 6610 2603 Meds/Results Medications: Active Medications Generic Name Dose Route Start Last Admin Trade Name Freq PRN Reason Stop Dose Admin Acetaminophen 650 mg 04/11/25 23:58 04/13/25 03:54 Acetaminophen 325 Mg Tablet PO 650 mg Q4H PRN Administration Mild Pain (1-3) or Fever Acetaminophen/Butalbital/Caffeine 1 tab 04/13/25 10:11 04/13/25 11:04 Acetaminophen/Butalbital/Caffeine 325-50-40 Mg Tablet (Fioricet) PO 1 tab Q4H PRN Administration Pain Rated 4-6 Apixaban 10 mg 04/12/25 09:00 04/13/25 09:43 Apixaban 5 Mg Tablet PO 04/18/25 09:01 10 mg Q12HR IZABEL Administration Lactated Ringer's 1,000 mls @ 150 mls/hr 04/11/25 23:45 04/13/25 10:11 Lr - Lactated Ringers Iv IV CONT 150 mls/hr .Q6H40M IZABEL Administration Lactated Ringer's 1,000 mls @ 150 mls/hr 04/13/25 07:40 Lr - Lactated Ringers Iv IV CONT .Q6H40M IZABEL Nicotine 1 patch 04/12/25 20:35 04/13/25 09:44 Nicotine (*Pbkc) 21 Mg Patch TRANSDERM 1 patch DAILY IZABEL Administration Nicotine Polacrilex 2 mg 04/12/25 20:18 Nicotine (*Pbkc) 2 Mg Gum PO PRN PRN Nicotine Cravings Ondansetron HCl 4 mg 04/11/25 23:58 Ondansetron Inj 4 Mg/2 Ml Vial IV PUSH Q4H PRN Nausea Prazosin HCl 1 mg 04/13/25 09:00 04/13/25 09:43 Prazosin Hcl 1 Mg Capsule PO 1 mg DAILY IZABEL Administration Prazosin HCl 2 mg 04/12/25 21:00 04/12/25 21:27 Prazosin Hcl 1 Mg Capsule PO 2 mg HS IZABEL Administration Quetiapine Fumarate 25 mg 04/12/25 12:38 04/12/25 21:26 Quetiapine Fumarate 25 Mg Tablet PO 25 mg HS PRN Administration sleep Radiology Results: ITS Impressions Chest X-Ray 04/11/25 20:15 IMPRESSION: 1. No acute cardiopulmonary disease. Venous Doppler Study 04/11/25 21:38 IMPRESSION: 1. No deep venous thrombosis in either lower limb. Chest CTA 04/11/25 22:07 IMPRESSION: 1. No pulmonary embolism or other acute cardiopulmonary disease. Head CT 04/12/25 06:03 Impression: No significant abnormality seen. Labs Labs: Laboratory Results - last 24 hr 04/12/25 04/13/25 04/13/25 12:19 05:40 05:40 WBC 6.1 RBC 3.82 L Hgb 10.9 L Hct 34.9 L MCV 91.4 MCH 28.5 MCHC 31.2 L RDW 13.5 Plt Count 302 MPV 8.7 Sodium 135 L Potassium 3.7 Chloride 106 Carbon Dioxide 25 Anion Gap 4 BUN 9 Creatinine 0.62 L Estim Creat Clear Calc 115 Estimated GFR > 60 Glucose 86 Calcium 8.6 Total Creatine Kinase 1166 H Cancelled Influenza A (RT-PCR) Negative Influenza B (RT-PCR) Negative RSV (RT-PCR) Negative SARS-CoV-2 RNA (RT-PCR) Negative
[2025-04-13 13:40] LABS: Hematocrit 36.8 % (37.0-47.0); Hemoglobin 11.8 g/dL (12.0-15.0); Mean Corpuscular HGB Conc 32.1 g/dl (32-36); Mean Corpuscular Hemoglobin 28.9 pg (26-34); Mean Corpuscular Volume 90.2 fl (80-100); Platelet Count Result 349 k/mm3 (150-375); Red Blood Count 4.08 M/mm3 (4.2-5.4); White Blood Count 7.1 K/mm3 (4.5-10.0)
[2025-04-13 14:46] LABS: Alanine Aminotransferase 68 U/L (6-35); Albumin Level 3.6 g/dL (3.5-5.1); Alkaline Phosphatase 63 U/L (38-126); Anion Gap 6 mmol/L (4-12); Aspartate Amino Transferase 51 U/L (14-36); Bilirubin,Total 0.2 mg/dL (0.2-1.3); Blood Urea Nitrogen 8 mg/dL (7-17); Calcium 8.8 mg/dL (8.4-10.2); Carbon Dioxide 26 mmol/L (22-30); Chloride 106 mmol/L (98-107); Estimated CRCL calculation 106 ml/min; Estimated Glomerular Filt Rate > 60; Glucose 143 mg/dL (65-110); Potassium 3.7 mmol/L (3.4-5.0); Sodium 138 mmol/L (137-145); Total Protein 6.6 g/dL (6.3-8.2)
[2025-04-13] MEDS: PERFLUTREN LIPID MICROSPHERES 1.5 ML VIAL DILUTED TO 10 ML TOTAL VOLUME IV PUSH (15:10)
--- NOTE | 2025-04-13 17:35 | IVDEFINITY ---
Prior to administration of IV Definity the patient was educated on the risks and benefits of the imaging enhancing agent including potential adverse side effects. The patient verbalized understanding. Allergies were verified. No exclusion criteria were identified and at least one of the following inclusion criteria were met: 1) physician request, 2) patient technically difficult to image (per the [place] [employer] of Echocardiography guidelines of two or more segments not discernable within the apical view), or 3) questionable left ventricular function. ?
[2025-04-13] MEDS: PRAZOSIN HCL 1 MG CAPSULE 2 MG PO (20:49)
[2025-04-14] VITALS (8 sets, daily range): BP systolic 123–133; BP diastolic 71–91; PULSE 80–104; RESP 16–18; TEMP 36.3–37; O2SAT 98–100
[2025-04-14 06:32] LABS: Hematocrit 33.3 % (37.0-47.0); Hemoglobin 10.7 g/dL (12.0-15.0); Mean Corpuscular HGB Conc 32.1 g/dl (32-36); Mean Corpuscular Hemoglobin 28.7 pg (26-34); Mean Corpuscular Volume 89.3 fl (80-100); Platelet Count Result 305 k/mm3 (150-375); Red Blood Count 3.73 M/mm3 (4.2-5.4); White Blood Count 7.2 K/mm3 (4.5-10.0)
[2025-04-14 06:49] LABS: Anion Gap 4 mmol/L (4-12); Blood Urea Nitrogen 8 mg/dL (7-17); Calcium 8.6 mg/dL (8.4-10.2); Carbon Dioxide 27 mmol/L (22-30); Chloride 104 mmol/L (98-107); Estimated CRCL calculation 117 ml/min; Estimated Glomerular Filt Rate > 60; Glucose 82 mg/dL (65-110); Potassium 3.7 mmol/L (3.4-5.0); Sodium 135 mmol/L (137-145)
[2025-04-14 07:51] LABS: Creatine Kinase 662 U/L (30-135)
[2025-04-14 09:41] LABS: Cannabinoid Screen Urine Negative (Negative)
[2025-04-14] MEDS: PRAZOSIN HCL 1 MG CAPSULE PO (10:24)
[2025-04-14] MEDS: APIXABAN 5 MG TABLET 10 MG PO ×2 (10:24→20:21)
[2025-04-14] MEDS: NICOTINE (*PBKC) 21 MG PATCH 1 PATCH TRANSDERM (10:24)
--- NOTE | 2025-04-14 11:16 | P.PNIM_ITS ---
Progress Note: A&P Assessment and Plan (1) Venous thrombosis of upper extremity: Code(s): I82.609 - Acute embolism and thrombosis of unspecified veins of unspecified upper extremity Status: Acute (2) Rhabdomyolysis: Code(s): M62.82 - Rhabdomyolysis Status: Acute Plan rhabdomyolysis. CK improving continue with IVF. follow CK level. L Arm DVT. found on US. CTA neg for pE. lower ext neg for DVT On Eliquis. continue to monitor lactic acidosis improved mild hyponatremia continue to monitor abd pain improving will check CMP mildly elevated in setting of alcohol abuse Liver EVANS hepatomegaly continue to monitor sinus tach with activity stable Echo unremarkable continue IVF continue to monitor Subjective Date/time seen: 04/14/25 11:16 Interval history: per HPi: 34[facility] breath, right swollen arm and leg with associated paresthesia for male without to the wrist. Reported a headache which was relieved with Tylenol. Of note, the patient was hospitalized at [facility] for heat exhaustion and dehydration since discharge on 04/07/2025. Reports she had a high D-dimer at that time and had a CT scan of the chest which was negative but ultrasounds were not done. On arrival patient had tachycardia which did resolve. Saturating well on room air. After arrival She was no longer complaining of paresthesia or shortness of breath. A chest x-ray was without acute disease. Bilateral lower extremity Doppler ultrasound without DVT. Bilateral upper extremity venous Doppler demonstrated a noncompressible thrombus in the left brachial basilic and ulnar veins. Chest CTA did not demonstrate PE or any other acute disease. In the ER she was administer 2 L lactated Ringer's, morphine 4 mg IV x1, apixaban 10 mg p.o. x1. Started on lactated Ringer's at 150 cc per hour. 04/12/25 Patient was seen and examined at bedside. she is feeling better. denies any chest pain, SOB, abd pain, N/V. HAd episode of Sinus tach last night. Has rhabdomyolysis. continue with IVF. Has LArm DVT. On Eliquis. 04/13/25 Patient was seen and examined at bedside. she is feeling fine. denied abd pain, N/V. no acute event overnight Still has elevated CK. will continue IVF. Later this morning complained RUQ pain. will get CMP. 04/14/25 Patient was seen and examined at bedside. she is feeling better. her abd pain is better. deneis any chest pain, N/V CK improving. will continue IVF Liver us showed hepatomegaly. ECHO unremarkable. Review of Systems Review of Systems: All systems reviewed & are unremarkable except as noted in HPI and below (Subjective) Exam Const: General: comfortable and no acute distress HENMT: Mouth: Yes moist mucous membranes Eyes: Pupils: Equal, round and reactive pupils present Neck: Neck: supple Resp: Effort & Inspection: normal respiratory effort Auscultation: clear to auscultation bilaterally Cardio: Rate: regular rate Rhythm: regular rhythm GI: Inspection: non-distended : General: Yes bladder normal to palpation Bimanual exam- vagina & uterus: bladder normal to palpation Neuro: Cranial nerves: Yes Equal, round and reactive pupils present Motor exam (neuro): 5/5 motor strength present throughout Sensory Exam: normal sensation Extrem: General: no edema Objective Data Vital Signs Vital Signs: Vital Signs - 24 hr 04/13/25 12:00 04/13/25 13:48 04/13/25 16:00 Temperature 97.6 F Pulse Rate 97 108 H 83 Respiratory Rate 19 Blood Pressure 132/92 H Pulse Oximetry 100 Oxygen Delivery 04/13/25 20:01 04/13/25 20:01 04/13/25 21:22 Temperature Pulse Rate 100 Respiratory Rate Blood Pressure Pulse Oximetry 99 Oxygen Delivery Room Air Room Air 04/13/25 22:00 04/14/25 04:00 04/14/25 06:00 Temperature 97.6 F 97.4 F L Pulse Rate 95 82 89 Respiratory Rate 18 18 Blood Pressure 147/94 H 133/89 Pulse Oximetry 99 100 Oxygen Delivery Intake/Output Intake/Output: Intake & Output 04/11/25 04/12/25 04/13/25 04/14/25 23:59 23:59 23:59 23:59 Intake Total 1999 3720 3671.5 790 Balance 1999 3720 3671.5 790 Meds/Results Medications: Active Medications Generic Name Dose Route Start Last Admin Trade Name Freq PRN Reason Stop Dose Admin Acetaminophen 650 mg 04/11/25 23:58 04/13/25 03:54 Acetaminophen 325 Mg Tablet PO 650 mg Q4H PRN Administration Mild Pain (1-3) or Fever Acetaminophen/Butalbital/Caffeine 1 tab 04/13/25 10:11 04/13/25 23:38 Acetaminophen/Butalbital/Caffeine 325-50-40 Mg Tablet (Fioricet) PO 1 tab Q4H PRN Administration Pain Rated 4-6 Apixaban 10 mg 04/12/25 09:00 04/14/25 10:24 Apixaban 5 Mg Tablet PO 04/18/25 09:01 10 mg Q12HR IZABEL Administration Hydroxyzine Pamoate 50 mg 04/13/25 13:49 04/13/25 14:09 Hydroxyzine Pamoate 25 Mg Capsule PO 50 mg Q4H PRN Administration Itching Lactated Ringer's 1,000 mls @ 150 mls/hr 04/11/25 23:45 04/14/25 07:00 Lr - Lactated Ringers Iv IV CONT Not Given .Q6H40M IZABEL Nicotine 1 patch 04/12/25 20:35 04/14/25 10:24 Nicotine (*Pbkc) 21 Mg Patch TRANSDERM 1 patch DAILY IZABEL Administration Nicotine Polacrilex 2 mg 04/12/25 20:18 Nicotine (*Pbkc) 2 Mg Gum PO PRN PRN Nicotine Cravings Ondansetron HCl 4 mg 04/11/25 23:58 Ondansetron Inj 4 Mg/2 Ml Vial IV PUSH Q4H PRN Nausea Prazosin HCl 1 mg 04/13/25 09:00 04/14/25 10:24 Prazosin Hcl 1 Mg Capsule PO 1 mg DAILY IZABEL Administration Prazosin HCl 2 mg 04/12/25 21:00 04/13/25 20:49 Prazosin Hcl 1 Mg Capsule PO 2 mg HS IZABEL Administration Quetiapine Fumarate 25 mg 04/12/25 12:38 04/14/25 01:36 Quetiapine Fumarate 25 Mg Tablet PO 25 mg HS PRN Administration sleep Radiology Results: ITS Impressions Chest X-Ray 04/11/25 20:15 IMPRESSION: 1. No acute cardiopulmonary disease. Venous Doppler Study 04/11/25 21:38 IMPRESSION: 1. No deep venous thrombosis in either lower limb. Chest CTA 04/11/25 22:07 IMPRESSION: 1. No pulmonary embolism or other acute cardiopulmonary disease. Head CT 04/12/25 06:03 Impression: No significant abnormality seen. Upper Quadrant Ultrasound 07/18/25 09:28 IMPRESSION: 1: Fatty infiltration of the liver with hepatomegaly. Labs Labs: Laboratory Results - last 24 hr 04/13/25 04/13/25 04/14/25 13:32 18:45 06:16 WBC 7.1 7.2 RBC 4.08 L 3.73 L Hgb 11.8 L 10.7 L Hct 36.8 L 33.3 L MCV 90.2 89.3 MCH 28.9 28.7 MCHC 32.1 32.1 RDW 13.5 13.5 Plt Count 349 305 MPV 8.5 8.5 Sodium 138 135 L Potassium 3.7 3.7 Chloride 106 104 Carbon Dioxide 26 27 Anion Gap 6 4 BUN 8 8 Creatinine 0.68 L 0.61 L Estim Creat Clear Calc 106 117 Estimated GFR > 60 > 60 Glucose 143 H 82 Calcium 8.8 8.6 Total Bilirubin 0.2 AST 51 H ALT 68 H Alkaline Phosphatase 63 Total Creatine Kinase 662 H Total Protein 6.6 Albumin 3.6 Urine Opiates Screen Negative Urine Methadone Screen Negative Ur Barbiturates Screen Positive A Ur Phencyclidine Scrn Negative Ur Amphetamine Screen Negative U Benzodiazepines Scrn Negative Urine Cocaine Screen Negative U Cannabinoids Screen Negative
[2025-04-14] MEDS: LACTATED RINGERS 1,000 ML 100 ML IV CONT ×2 (11:33→20:25)
[2025-04-14] MEDS: ACETAMINOPHEN/BUTALBITAL/CAFFEINE 325-50-40 MG TABLET (FIORICET) 1 TAB PO (15:14)
[2025-04-14] MEDS: PRAZOSIN HCL 1 MG CAPSULE 2 MG PO (20:21)
[2025-04-15 00:04] VITALS: PULSE 77
[2025-04-15 01:32] VITALS: BP 122/77
[2025-04-15 04:00] VITALS: PULSE 91
[2025-04-15] MEDS: ACETAMINOPHEN/BUTALBITAL/CAFFEINE 325-50-40 MG TABLET (FIORICET) 1 TAB PO ×2 (04:00→10:21)
[2025-04-15 06:00] VITALS: BP 125/66; PULSE 84; RESP 18; TEMP 36.5; O2SAT 99
[2025-04-15 06:08] LABS: Hematocrit 34.7 % (37.0-47.0); Hemoglobin 11.2 g/dL (12.0-15.0); Mean Corpuscular HGB Conc 32.3 g/dl (32-36); Mean Corpuscular Hemoglobin 28.7 pg (26-34); Mean Corpuscular Volume 89.0 fl (80-100); Platelet Count Result 371 k/mm3 (150-375); Red Blood Count 3.90 M/mm3 (4.2-5.4); White Blood Count 6.3 K/mm3 (4.5-10.0)
[2025-04-15 06:38] LABS: Anion Gap 7 mmol/L (4-12); Blood Urea Nitrogen 11 mg/dL (7-17); Calcium 8.8 mg/dL (8.4-10.2); Carbon Dioxide 23 mmol/L (22-30); Chloride 106 mmol/L (98-107); Creatine Kinase 311 U/L (30-135); Estimated CRCL calculation 113 ml/min; Estimated Glomerular Filt Rate > 60; Glucose 80 mg/dL (65-110); Potassium 3.6 mmol/L (3.4-5.0); Sodium 136 mmol/L (137-145)
[2025-04-15] MEDS: LACTATED RINGERS 1,000 ML 100 ML IV CONT (07:02)
[2025-04-15 08:03] VITALS: PULSE 97
[2025-04-15] MEDS: APIXABAN 5 MG TABLET 10 MG PO (10:09)
[2025-04-15] MEDS: NICOTINE (*PBKC) 21 MG PATCH 1 PATCH TRANSDERM (10:09)
[2025-04-15] MEDS: PRAZOSIN HCL 1 MG CAPSULE PO (10:09)
--- NOTE | 2025-04-15 11:17 | P.DS_ITS ---
DS: Admitting Diagnosis Discharge Date 04/15/25 Admitting Diagnosis arm swelling, DVT, rhabdomyolysis DS: Discharge Diagnosis Discharge Diagnosis (1) Venous thrombosis of upper extremity: Code(s): I82.609 - Acute embolism and thrombosis of unspecified veins of unspecified upper extremity Status: Acute (2) Rhabdomyolysis: Code(s): M62.82 - Rhabdomyolysis Status: Acute Plan rhabdomyolysis. CK improving Received IV fluid L Arm DVT. found on US. CTA neg for pE. lower ext neg for DVT On Eliquis. continue to monitor lactic acidosis improved mild hyponatremia continue to monitor abd pain improving CMP mildly elevated in setting of alcohol abuse Liver EVANS hepatomegaly continue to monitor sinus tach with activity stable Echo unremarkable continue to monitor DS: Summary Hospital Course Hospital Course: 34[facility], right swollen arm and leg with associated paresthesia for male without to the wrist. Reported a headache which was relieved with Tylenol. Of note, the patient was hospitalized at [facility] for heat exhaustion and dehydration since discharge on 04/07/2025. Reports she had a high D-dimer at that time and had a CT scan of the chest which was negative but ultrasounds were not done. On arrival patient had tachycardia which did resolve. Saturating well on room air. After arrival She was no longer complaining of paresthesia or shortness of breath. A chest x-ray was without acute disease. Bilateral lower extremity Doppler ultrasound without DVT. Bilateral upper extremity venous Doppler demonstrated a noncompressible thrombus in the left brachial basilic and ulnar veins. Chest CTA did not demonstrate PE or any other acute disease. In the ER she was administer 2 L lactated Ringer's, morphine 4 mg IV x1, apixaban 10 mg p.o. x1. Started on lactated Ringer's at 150 cc per hour. 04/12/25 Has rhabdomyolysis. continue with IVF. Has LArm DVT. On Eliquis. 04/14/25 Liver us showed hepatomegaly. ECHO unremarkable. 04/15/25 Patient was seen and examined at bedside. she is feeling fine. denied abd pain, N/V. no acute event overnight CK close to normal. Will discharge patient. No Status at Discharge Overall status at discharge: patient is progressing back to baseline Time Spent with Patient Time attestation: Total time spent providing and/or coordinating discharge services: Time spent: Greater than 30 minutes Exam Const: General: comfortable and no acute distress HENMT: Mouth: Yes moist mucous membranes Eyes: Pupils: Equal, round and reactive pupils present Neck: Neck: supple Resp: Effort & Inspection: normal respiratory effort Auscultation: clear to auscultation bilaterally Cardio: Rate: regular rate Rhythm: regular rhythm GI: Inspection: non-distended : General: Yes bladder normal to palpation Bimanual exam- vagina & uterus: bladder normal to palpation Neuro: Cranial nerves: Yes Equal, round and reactive pupils present Motor exam (neuro): 5/5 motor strength present throughout Sensory Exam: normal sensation Extrem: General: no edema DS: Data Data Completed and Pending Labs on day of discharge: Labs from last 24 hours 04/15/25 05:40 WBC 6.3 RBC 3.90 L Hgb 11.2 L Hct 34.7 L MCV 89.0 MCH 28.7 MCHC 32.3 RDW 13.6 Plt Count 371 MPV 8.6 Sodium 136 L Potassium 3.6 Chloride 106 Carbon Dioxide 23 Anion Gap 7 BUN 11 Creatinine 0.63 L Estim Creat Clear Calc 113 Estimated GFR > 60 Glucose 80 Calcium 8.8 Total Creatine Kinase 311 H Discharge Plan Discharge Attending physician on discharge: Judy Gutierrez Consulting providers: uJdy Gutierrez Discharging Clinician: Judy Gutierrez Anticipated Discharge Date/Time: 04/15/25 11:22 Patient Disposition: Home Activity: as tolerated Diet: as tolerated Discharge Instructions: follow with PCP in one week. continue Eliquis for 3 months. take 10 mg twice daily for 4 days and then 5 mg twice daily keep yourself hydrated. Patient Instructions: Antibiotic Form Patient Language: Guyanese Stand Alone Forms: General Discharge Information Follow-up/Referrals: PHYSICIAN,MACHINE TOOL TECHNICIAN INSTRUCTOR [Primary Care Provider] - 1 Week Discharge Medications: New Eliquis 5 mg tablet 10 mg PO BID 4 Days Qty: 16 0RF Eliquis 5 mg tablet 5 mg PO BID Qty: 60 0RF Rx Instructions: start on 04/20/25 Continued hydroxyzine pamoate 25 mg capsule 50 mg PO Q4H PRN (Reason: anxiety) prazosin 1 mg capsule 1 mg PO DAILY prazosin 2 mg capsule 2 mg PO QPM quetiapine [Seroquel] 25 mg tablet 25 mg PO HS PRN (Reason: sleep) Date of admission: 04/13/25 13:58 Primary Care Provider: PHYSICIAN,MACHINE TOOL TECHNICIAN INSTRUCTOR Admitting Provider: Claudia Haas Attending physician on admission: Claudia Haas Condition: Stable
--- NOTE | 2025-04-15 11:31 | PC.NURSE ---
This RN had to administer medications without scanning pt bracelets and medication barcodes due to a malfunction with computer scanner. The scanner would not scan patient bracelets or medications after battery changed.
== END 2025-04-15 14:40 | disposition home or self-care (01) | DRG 197 ==
LOC: ANHED 20:42 → ANH3MEDSUR 04-12 00:35
PROVIDERS: Admitting Provider General Practice; Emergency Provider Student in an Organized Health Care Education/Training Program; Visit Provider Internal Medicine
DX: I82.622 Acute embolism and thrombosis of deep veins of left upper extremity (principal); M62.82 Rhabdomyolysis; E87.1 Hypo-osmolality and hyponatremia; R16.0 Hepatomegaly, not elsewhere classified; Z20.822 Contact with and (suspected) exposure to COVID-19
CPT/HCPCS: 36415; 70450; 71045; 71275; 76705; 80048; 80053; 80307; 82550; 83605; 83690; 83735; 84484; 85025; 85027; 85610; 85730; 87637; 93005; 93970; 96361; 96374; 96375; 99285; A9270; C8929; G0378; G0379; J7120; Q9957; Q9967

== ENCOUNTER 2025-05-07 22:47 | Emergency (ER) | payer OTHER, SELFPAY ==
[2025-05-07] VITALS (10 sets, daily range): BP systolic 121–141; BP diastolic 79–86; PULSE 89–126; RESP 14–29; TEMP 36.7; O2SAT 96–100
--- NOTE | ~2025-05-07 | CT_ITS ---
EXAMINATION: CTA chest PE abdomen pel DATE: 05/08/2025 7:00 CDT INDICATION: Syncope. DVT. TECHNIQUE: Computed tomographic angiography (CTA) of the chest, abdomen, and pelvis was performed wit hout and with 100 mL Omnipaque-350 intravenous contrast. The dose-length product was 777.74 mGy-cm. M aximum intensity projection 3D-reconstructions of the aorta and other arteries were constructed by kwaku olson technologist on a separate workstation. COMPARISON: CT dated 04/11/2025. FINDINGS: CHEST CTA: Heart size normal. No significant pleural or pericardial effusion. There are changes of gastric bypas s surgery. No thoracic lymphadenopathy. No evidence for aortic aneurysm or dissection. Study is techn ically adequate without evidence for pulmonary embolism. ABDOMEN AND PELVIS CTA: The liver, spleen, pancreas, adrenal glands and kidneys are unremarkable. Gallbladder is contracted. Bladder wall is mildly thickened, although underdistended. Consider cystitis in the appropriate clini jarrett setting. Nonobstructive bowel gas pattern. No significant vascular abnormality. There is a 2.4 cm corpus luteal cyst of the left ovary. IMPRESSION: 1. No acute cardiopulmonary disease. No significant vascular abnormality. 2: Mild bladder wall thickening which may be due to contraction or underlying cystitis. Clinically c orrelate. Reviewed, dictated and finalized at location A. IMPRESSION: 1. No acute cardiopulmonary disease. No significant vascular abnormality. 2: Mild bladder wall thickening which may be due to contraction or underlying cystitis. Clinically correlate.
--- NOTE | ~2025-05-07 | XR_ITS ---
EXAMINATION: XR chest 2V 05/07/2025 23:41 INDICATION: Shortness of breath PROCEDURE: 2 view chest COMPARISON: 04/11/2025 FINDINGS: The lungs are clear. The cardiomediastinal silhouette is within normal limits. There are no pleural effusions. There is no pneumothorax suspected. IMPRESSION: 1: NO ACUTE CARDIOPULMONARY DISEASE. Reviewed, dictated and finalized at location A.
--- NOTE | 2025-05-07 22:50 | ECG_ITS ---
Test Date: 2025-05-07 23:01:48 Measurements Intervals [place] Rate: 97 P: 79 HI: 139 QRS: 48 QRSD: 91 T: 39 QT: 357 QTc: 455 Interpretive Statements SINUS RHYTHM LEFT ATRIAL ENLARGEMENT CANNOT R/O SEPTAL INFARCT, AGE INDETERMINATE BORDERLINE ST-T WAVE ABNORMALITY- ANT/INF LEADS ABNORMAL ECG Compared to ECG 04/11/2025 19:41:58 HEART RATE HAS DECREASED Electronically Signed On 05-08-2025 06:16:07 CDT by Michael Abdi D.O.
--- OUTSIDE RECORDS SUMMARY | 2025-05-07 22:50 | XMS_ITS | Patient Health Record ---
Author Organization [facility] Address [address] [place] [address] Care Team Providers Care Clinical Abstractor Name Role Phone SparrLesly Primary Care Provider [phone] Vik Kelley Unavailable [phone] Tyra, Bria Unavailable [phone] Everton, Phuong Unavailable [phone] Allergies No Known Allergies Results Component Value Reference Range Notes QuantiFERON-TB Gold Plus ([id number]) (Not yet reviewed by provider) Interpretation: Performing [facility] [address] [facility], [place], Phone - [phone], Director - [facility] Notes/Report: QuantiFERON Incubation Incubation performed. QuantiFERON-TB Gold Plus Negative Negative No response to M tuberculosis antigens detected. Infection with M tuberculosis is unlikely, but high risk individuals should be considered for additional testing (ATS/IDSA/CDC Clinical Practice Guidelines, 2017). The reference range is an Antigen minus Nil result of <0.35 IU/mL. Chemiluminescence immunoassay methodology QuantiFERON Criteria QuantiFERON-TB Gold Plus is a qualitative indirect test for M tuberculosis infection (including disease) and is intended for use in conjunction with risk assessment, radiography, and other medical and diagnostic evaluations. The QuantiFERON-TB Gold Plus result is determined by subtracting the Nil value from either TB antigen (Ag) value. The Mitogen tube serves as a control for the test. QuantiFERON TB1 Ag Value 0.05 QuantiFERON TB2 Ag Value 0.07 QuantiFERON Nil Value 0.06 QuantiFERON Mitogen Value 8.56 Reason For Referral No Information Medications Medication SIG (Take, Route, Frequency, Duration) Notes Start Date End Date Status hydrOXYzine Pamoate 25 MG 1-2 capsules Orally every 4 hours as needed for anxiety, agitation, or inability to sleep. Do not give within 4 hours of diphenhydramine. Active Nicotine Polacrilex 4 MG Chew 1 piece as needed for nicotine cravings Mouth/Throat up to every hour (max of 20 pieces per day); Duration: 7 days 04/10/2025 Active Eliquis 5 MG as directed Orally Active Melatonin 5 MG 1 tablet at bedtime as needed Orally Once a day; Duration: 30 days 04/10/2025 Not-Taking Nicotine Polacrilex Mini 2 MG as directed Mouth/Throat Not-Taking Nicotine Step 1 21 MG/24HR 1 patch to skin Transdermal Once a day Active Daily Vitamin Active Prazosin HCl 1 MG 1 capsule at bedtime Orally Once a day; Duration: 7 days pt on unit, thanks Active Social History Tobacco Use: Social History Observation Description Date Details (start date - stop date) Former Smoker NA - NA Sex Assigned At : Social History Observation Description Sex Assigned At Female PRAPARE Question Answer Notes Date Completed/Updated: 04/10/2025 What is your current housing situation? I do not have housing (staying with others, in a hotel, in a residential, living outside on the street, on a [...] phone, visiting friends or family, going to catholic or club meetings) Less than once a week How stressed are you? Stress is when someone feels tense, nervous, anxious, or can\t sleep at night because their mind is troubled Somewhat In the past year have you sp ent more than 2 nights in a row in a fpc, assisted, jail center, or juvenile correctional facility? Yes What [...] Please specify Case Management Assessment First Visit Tobacco Control (Standard) Question Answer Notes Tobacco use: Former smoker How long has it been since you last smoked? Less than 1 month Problems Problem Type SNOMED Code ICD Code Onset Dates Problem Status W/U Status Risk Notes Problem Attention deficit disorder (57125152) ADD (attention deficit disorder) (F90.0) Active confirmed Self- report diagnosis from childhood. Problem Overweight (543252892) Over weight (E66.3) Active confirmed Problem Alcohol use disorder (9675773995) Alcohol use disorder (F10.99) Active confirmed Problem Adjustment disorder (53782422) Trauma and stressor-related disorder (F43.9) Active confirmed Problem Stimulant dependence (927327824) Methamphetamine use disorder, moderate (F15.20) Active confirmed Vital Signs Heart Rate 83 /min 04/28/2025 Temperature 98.0 degrees Fahrenheit 04/28/2025 Respiratory Rate 16 /min 04/28/2025 Blood pressure diastolic 78 mm Hg 04/28/2025 Oximetry 99 % 04/28/2025 Height 65 in 04/28/2025 Blood pressure systolic 144 mm Hg 04/28/2025 Weight 177 lbs 05/01/2025 BMI 29.45 kg/m2 04/28/2025 Encounters Encounter Location Date Provider Diagnosis [facility] [place] [address] 04/10/2025 Lesly Snell Encounter for adult wellness visit Z00.00 ; Methamphetamine use disorder, moderate F15.20 and Over weight E66.3 [facility] [place] [address] 04/10/2025 Phuong Toscano Methamphetamine use disorder, moderate F15.20 and ADD (attention deficit disorder) F90.0 [facility] [place] [address] 04/17/2025 Bria Tyra Trauma and stressor-related disorder F43.9 and Methamphetamine use disorder, moderate F15.20 [facility] [address], [place] [address] 04/24/2025 Bria Tyra Trauma and stressor-related disorder F43.9 ; Methamphetamine use disorder, moderate F15.20 and ADD (attention deficit disorder) F90.0 [place] [address] [place] [address] 04/28/2025 Vik Kelley Over weight E66.3 ; Methamphetamine use disorder, moderate F15.20 ; Alcohol use disorder F10.99 and DVT (deep venous thrombosis) I82.409 [facility] [address], [place] [address] 05/01/2025 Bria Tyra Trauma and stressor-related disorder F43.9 ; Methamphetamine use disorder, moderate F15.20 and ADD (attention deficit disorder) F90.0 Assessments Encounter Date Diagnosis (ICD Code) Assessment Notes Treatment Notes Treatment Clinical Notes Section Notes 04/10/2025 Methamphetamine use disorder, moderate (ICD-10 - F15.20) SUPR Programs: Based on an evaluation of [facility] Patient Placement Criteria, a recommendation for placement [...] there is pus, a foul odor, increased pain/redness/swelli ng, or if soaking through bandages. - treatment per recommendations 04/10/2025 Encounter for adult wellness visit (ICD-10 - Z00.00) Continue treatment as recommended by [facility] staff. Encouraged patient to obtain routine medical care with patient's own primary care provider or establish as a patient at [facility] if no current primary care provider. -presented for physical for admission to [facility], exam completed, stable for admission 04/10/2025 ADD (attention deficit disorder) (ICD-10 - F90.0) Self- report diagnosis from childhood. Scheduled for psych eval. 04/10/2025 Methamphetamine use disorder, moderate (ICD-10 - F15.20) 04/17/2025 Trauma and stressor-related disorder (ICD-10 - F43.9) 04/24/2025 Trauma and stressor-related disorder (ICD-10 - F43.9) 04/24/2025 Methamphetamine use disorder, moderate (ICD-10 - F15.20) 04/28/2025 Over weight (ICD-10 - E66.3) DISCUSSED LOW SALT DIET, AVOIDING PROCESSED FOODS. DISCUSSED EATING FRUITS, VEGGIES, LEAN MEATS. DISCUSSED AVOIDING DRINKS WITH PROCESSED SUGAR, INCLUDING FRUIT JUICES. 04/28/2025 Methamphetamine use disorder, moderate (ICD-10 - F15.20) 05/01/2025 Trauma and stressor-related disorder (ICD-10 - F43.9) 05/01/2025 Methamphetamine use disorder, moderate (ICD-10 - F15.20) 04/28/2025 Alcohol use disorder (ICD-10 - F10.99) 04/17/2025 Methamphetamine use disorder, moderate (ICD-10 - F15.20) 04/24/2025 ADD (attention deficit disorder) (ICD-10 - F90.0) Self- report diagnosis from childhood. see treatment plan 04/28/2025 DVT (deep venous thrombosis) (ICD-10 - I82.409) CONTINUE ELIQUIS FOR 12 WEEKS 05/01/2025 ADD (attention deficit disorder) (ICD-10 - F90.0) Self- report diagnosis from childhood. 04/10/2025 Over weight (ICD-10 - E66.3) 04/10/2025 [...] the purposes of identifying additional service needs. 04/17/2025 Other May self-administer medications or be administered own oral medications per [facility] protocols. Provided informed consent with understanding of side effects, adverse effects, risks and benefits as well as alternative treatments as previously discussed and with the above recommended medications & other aspects of the treatment program. Agrees to return sooner if symptoms worsen or suicidal or homicidal ideations occur. Medication Hx: -Wellbutrin (caused emotional blunting) Plan: -Continue Prazosin 2 mg QHS TOTAL 3 MG -Continue Prazosin 1 mg QHS TOTAL 3 MG -Continue Hydroxyzine Pamoate 25 mg q4hrs PRN *encouraged her to continue psychotherapy Treatment Plan: -Consider non stimulant ADHD medication once off Eliquis -Follow up: 4 weeks [] Hard Rx handed to patient [] Rx phoned into pharmacy [x] Rx faxed/e-prescribed into pharmacy [x] PDMP Reviewed [] [facility] Reviewed Encouraged by Bria Mary PMHNP- to: [] consider utilizing therapist/counselor /manager social/psychologist , referral given [x] continue with therapist/counselor /manager social/psychologist Psychoeducation: -Treatment options discussed in detail with patient/guardian verbalizing understanding of treatment rationales. -Side effects and benefits of all medications prescribed discussed at length between psychiatric prescribing provider and patient/guardian along with the risks associated of jaim-qz-tyhq interactions, including but not limited to prescription medications, OTC medications, vitamins, minerals and herbal supplements. -Patient/Guardian and provider dialogue showcased verbalized understanding from patient on rationales of medication risk vs benefits. -Information with neurobiology of presenting neurotransmitter disorder, mood stability, sleep hygiene and 7-8 hours of uninterrupted sleep per night with wakeful and refreshed awakening and day long alertness discussed. -Reduction of stress and anxiety to aid in focus and concentration discussed, again, with patient/guardian physically nodding, voicing understanding, and engaged in treatment plan with Bria Mary [facility]. -Perceiving complete understanding of rationale by patient/guardian and willingness to adhere to formulated plan of care by prescriber with patient/guardian buy-in, willingness to participate actively in plan of care and willing to take charge of own care. -Although geared for female patients, all patients/guardians are informed by prescribing provider of risks of medications that could potentially be taken by female/women within their [place] of influence and that women who use medicine during have a higher chance of having a baby with defects. -Patient/Guardian denies being and/or knowing of women who are at present and denies wanting to become in the foreseeable future, 0-6 months from now. -Patient/Guardian again informed of the risk of pharmaceutical medications consumed during and how there are potential negative effects on the developing fetus. -Patient/Guardian verbalizes understanding of rationale and physically nods head in agreement that if a should occur, to consult with provider, PUMPER GAUGER and/or Nurse Social Media Campaign Manager to determine if prescribed medications should or should not be continued. -Instructions regarding both the medical/pharmacolog ical and non-pharmacologic aspects of the treatments employed were given, and the patient/guardian seemed to understand this. Risks and benefits of treatment, and of non-treatment, were also discussed. The patient/guardian understands the more frequent side effects associated with the medications. -The use of psychotherapy was addressed today and will continue on an as needed basis for the foreseeable future. The choice is, of course, ultimately left to the patient/guardian. -Patient/Guardian was encouraged to make a follow-up appointment for the next visit. -Additional treatment was discussed and has been addressed on an ongoing basis within the context of this patient's illness, resources, progress, and other appropriate factors. Being compliant with a regular exercise routine, consistent medication use, ongoing psychotherapy, eating and sleeping well, as well as the importance of handling stress, was discussed. 04/24/2025 Other May self-administer medications or be administered own oral medications per [facility] protocols. Provided informed consent with understanding of side effects, adverse effects, risks and benefits as well as alternative treatments as previously discussed and with the above recommended medications & other aspects of the treatment program. Agrees to return sooner if symptoms worsen or suicidal or homicidal ideations occur. Medication Hx: -Wellbutrin (caused emotional blunting) Medication Plan: -Continue Prazosin 2 mg QHS TOTAL 3 MG -Continue Prazosin 1 mg QHS TOTAL 3 MG -Continue Hydroxyzine Pamoate 25 mg q4hrs PRN Discharge date from [facility] is 05/06 Treatment Plan: -Consider non stimulant ADHD medication once off Eliquis -Follow up: 1 week [] Hard Rx handed to patient [] Rx phoned into pharmacy [x] Rx faxed/e-prescribed into pharmacy [] PDMP Reviewed [] GeneSight Reviewed Encouraged by Bria Mary PMHNP-BC to: [] consider utilizing therapist/counselor /manager social/psychologist , referral given [x] continue with therapist/counselor /manager social/psychologist Psychoeducation: -Treatment options discussed in detail with patient/guardian verbalizing understanding of treatment rationales. -Side effects and benefits of all medications prescribed discussed at length between psychiatric prescribing provider and patient/guardian along with the risks associated of ufua-ww-nowe interactions, including but not limited to prescription medications, OTC medications, vitamins, minerals and herbal supplements. -Patient/Guardian and provider dialogue showcased verbalized understanding from patient on rationales of medication risk vs benefits. -Information with neurobiology of presenting neurotransmitter disorder, mood stability, sleep hygiene and 7-8 hours of uninterrupted sleep per night with wakeful and refreshed awakening and day long alertness discussed. -Reduction of stress and anxiety to aid in focus and concentration discussed, again, with patient/guardian physically nodding, voicing understanding, and engaged in treatment plan with Bria Mary [facility]. -Perceiving complete understanding of rationale by patient/guardian and willingness to adhere to formulated plan of care by prescriber with patient/guardian buy-in, willingness to participate actively in plan of care and willing to take charge of own care. -Although geared for female patients, all patients/guardians are informed by prescribing provider of risks of medications that could potentially be taken by female/women within their [place] of influence and that women who use medicine during have a higher chance of having a baby with defects. -Patient/Guardian denies being and/or knowing of women who are at present and denies wanting to become in the foreseeable future, 0-6 months from now. -Patient/Guardian again informed of the risk of pharmaceutical medications consumed during and how there are potential negative effects on the developing fetus. -Patient/Guardian verbalizes understanding of rationale and physically nods head in agreement that if a should occur, to consult with provider, PUMPER GAUGER and/or Nurse Social Media Campaign Manager to determine if prescribed medications should or should not be continued. -Instructions regarding both the medical/pharmacolog ical and non-pharmacologic aspects of the treatments employed were given, and the patient/guardian seemed to understand this. Risks and benefits of treatment, and of non-treatment, were also discussed. The patient/guardian understands the more frequent side effects associated with the medications. -The use of psychotherapy was addressed today and will continue on an as needed basis for the foreseeable future. The choice is, of course, ultimately left to the patient/guardian. -Patient/Guardian was encouraged to make a follow-up appointment for the next visit. -Additional treatment was discussed and has been addressed on an ongoing basis within the context of this patient's illness, resources, progress, and other appropriate factors. Being compliant with a regular exercise routine, consistent medication use, ongoing psychotherapy, eating and sleeping well, as well as the importance of handling stress, was discussed. 05/01/2025 Other May self-administer medications or be administered own oral medications per [facility] protocols. Provided informed consent with understanding of side effects, adverse effects, risks and benefits as well as alternative treatments as previously discussed and with the above recommended medications & other aspects of the treatment program. Agrees to return sooner if symptoms worsen or suicidal or homicidal ideations occur. Medication Hx: -Wellbutrin (caused emotional blunting) Medication Plan: -Stop Prazosin 2 mg QHS -Continue Prazosin 1 mg QHS TOTAL 3 MG -Continue Hydroxyzine Pamoate 25 mg q4hrs PRN Discharge date from [facility] is 05/11 Treatment Plan: -Stop Prazosin at next visit -Follow up: 1 week [] Hard Rx handed to patient [] Rx phoned into pharmacy [x] Rx faxed/e-prescribed into pharmacy [] PDMP Reviewed [] GeneSight Reviewed Encouraged by Bria CRAMERP-BC to: [] consider utilizing therapist/counselor /manager social/psychologist , referral given [x] continue with therapist/counselor /manager social/psychologist Psychoeducation: -Treatment options discussed in detail with patient/guardian verbalizing understanding of treatment rationales. -Side effects and benefits of all medications prescribed discussed at length between psychiatric prescribing provider and patient/guardian along with the risks associated of nntq-vt-wrjd interactions, including but not limited to prescription medications, OTC medications, vitamins, minerals and herbal supplements. -Patient/Guardian and provider dialogue showcased verbalized understanding from patient on rationales of medication risk vs benefits. -Information with neurobiology of presenting neurotransmitter disorder, mood stability, sleep hygiene and 7-8 hours of uninterrupted sleep per night with wakeful and refreshed awakening and day long alertness discussed. -Reduction of stress and anxiety to aid in focus and concentration discussed, again, with patient/guardian physically nodding, voicing understanding, and engaged in treatment plan with Bria CRAMERP-BC. -Perceiving complete understanding of rationale by patient/guardian and willingness to adhere to formulated plan of care by prescriber with patient/guardian buy-in, willingness to participate actively in plan of care and willing to take charge of own care. -Although geared for female patients, all patients/guardians are informed by prescribing provider of risks of medications that could potentially be taken by female/women within their [place] of influence and that women who use medicine during have a higher chance of having a baby with defects. -Patient/Guardian denies being and/or knowing of women who are at present and denies wanting to become in the foreseeable future, 0-6 months from now. -Patient/Guardian again informed of the risk of pharmaceutical medications consumed during and how there are potential negative effects on the developing fetus. -Patient/Guardian verbalizes understanding of rationale and physically nods head in agreement that if a should occur, to consult with provider, PUMPER GAUGER and/or Nurse Social Media Campaign Manager to determine if prescribed medications should or should not be continued. -Instructions regarding both the medical/pharmacolog ical and non-pharmacologic aspects of the treatments employed were given, and the patient/guardian seemed to understand this. Risks and benefits of treatment, and of non-treatment, were also discussed. The patient/guardian understands the more frequent side effects associated with the medications. -The use of psychotherapy was addressed today and will continue on an as needed basis for the foreseeable future. The choice is, of course, ultimately left to the patient/guardian. -Patient/Guardian was encouraged to make a follow-up appointment for the next visit. -Additional treatment was discussed and has been addressed on an ongoing basis within the context of this patient's illness, resources, progress, and other appropriate factors. Being compliant with a regular exercise routine, consistent medication use, ongoing psychotherapy, eating and sleeping well, as well as the importance of handling stress, was discussed. Plan Of Treatment Future Test Test Name Order Date QuantiFERON-TB Gold Plus ([id number]) 2024 Next Appt Details Provider Name:Bria walls, 05/09/2025 10:20:00 AM, [address] [place] [address], [phone], Insurance Providers Payer Name Payer Address Payer Phone Subscriber Number Group Number Insured Name Patient Relationship to Insured Coverage Start Date Coverage End Date [employer] [address] [place] [address] [id number] Shira Hairston Self - patient is the insured [employer] [facility] [address] [place] [address] [id number] Shira Hairston Self - patient is the insured 5 [employer] [address] [place] [address] [id number] Shira Hairston Self - patient is the insured 5 Medical (General) History Medical History History ICD Code Rhambdomyolosis Blood clots in left arm Surgical History Surgery Date(Month/Year) gastric sleeve 2019 Hospitalization History Reason Date(Month/Year) Daniel- Blood Clot in arm 03/2025 [facility] 03/2025
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
[2025-05-07 23:15] LABS: Hematocrit 36.2 % (37.0-47.0); Hemoglobin 11.7 g/dL (12.0-15.0); Immature Granulocyte Percent A 0.2 % (0-0.5); Lymphocytes Absolute Auto 2.13 K/mm3 (0.9-3.2); Mean Corpuscular HGB Conc 32.3 g/dl (32-36); Mean Corpuscular Hemoglobin 28.4 pg (26-34); Mean Corpuscular Volume 87.9 fl (80-100); Nucleated Red Blood Cells Absolute Auto 0.000 K/mm3 (0.0-0.012); Nucleated Red Blood Cells Perc 0.0 % (0.0-0.2); Platelet Count Result 287 k/mm3 (150-375); Red Blood Count 4.12 M/mm3 (4.2-5.4); White Blood Count 6.3 K/mm3 (4.5-10.0)
[2025-05-07 23:32] LABS: Alanine Aminotransferase 513 U/L (6-35); Albumin Level 3.8 g/dL (3.5-5.1); Alkaline Phosphatase 136 U/L (38-126); Anion Gap 9 mmol/L (4-12); Aspartate Amino Transferase 320 U/L (14-36); Bilirubin,Total 0.4 mg/dL (0.2-1.3); Blood Urea Nitrogen 15 mg/dL (7-17); Calcium 9.0 mg/dL (8.4-10.2); Carbon Dioxide 24 mmol/L (22-30); Chloride 105 mmol/L (98-107); Estimated CRCL calculation 97 ml/min; Estimated Glomerular Filt Rate > 60; Glucose 153 mg/dL (65-110); Potassium 4.0 mmol/L (3.4-5.0); Sodium 138 mmol/L (137-145); Total Protein 7.1 g/dL (6.3-8.2)
[2025-05-07] MEDS: SODIUM CHLORIDE 0.9% IV 1,000 ML 999 ML IV CONT (23:50)
[2025-05-07 23:51] LABS: Creatine Kinase 75 U/L (30-135); Lipase 256 U/L (23-300)
[2025-05-08] VITALS (17 sets, daily range): BP systolic 137–139; BP diastolic 79–101; PULSE 80–99; RESP 12–24; O2SAT 98–100
[2025-05-08 00:03] LABS: Troponin I < 0.012 ng/mL (0.000-0.034)
--- NOTE | 2025-05-08 00:04 | ED_ITS ---
HPI - Syncope General Chief Complaint: Syncope <BRADLEY Fu Last Filed: 05/09/25 09:16> Stated Complaint: leg pain/dizziness/palpitations <BRADLEY Fu Last Filed: 05/09/25 09:16> Time Seen by Provider: 05/07/25 23:34 <BRADLEY Fu Last Filed: 05/09/25 09:16> Source: patient <BRADLEY Fu Last Filed: 05/09/25 09:16> Mode of arrival: ambulatory <BRADLEY Fu Last Filed: 05/09/25 09:16> Limitations: no limitations <BRADLEY Fu Last Filed: 05/09/25 09:16> History of Present Illness HPI narrative: This is a 34-year-old female that presents to the emergency department for multiple syncopal episodes today. Reports having prodromal shortness of breath, lightheadedness. She was recently admitted here for rhabdomyolysis. Also found to have a DVT in her upper extremity. Currently on anticoagulation. Denies fevers, chest pain, abdominal pain, vomiting. <BRADLEY Fu Last Filed: 05/09/25 09:16> Related Data Home Medications: Home Medications ?Medication ?Instructions ?Recorded ?Confirmed ?Last Taken ?Type hydroxyzine pamoate 25 mg capsule 50 mg PO Q4H PRN anxiety 04/12/25 05/07/25 Unknown History prazosin 1 mg capsule 1 mg PO DAILY 04/12/25 05/07/25 Unknown History prazosin 2 mg capsule 2 mg PO QPM 04/12/25 05/07/25 Unknown History multivitamin with folic acid 400 tablet PO 05/08/25 Unknown History mcg tablet (Daily-Celia (with folic acid)) <BRADLEY Fu Last Filed: 05/09/25 09:16> Allergies/Adverse Reactions: Allergies Allergy/AdvReac Type Severity Reaction Status Date / Time No Known Allergies Allergy Verified 05/07/25 23:12 <BRADLEY Fu Last Filed: 05/09/25 09:16> Review of Systems 2 Review of Systems: All systems reviewed & are unremarkable except as noted in HPI and below <Marybel Meza PA-C - Last Filed: 05/09/25 09:16> [facility] Past Medical History Medical History: Medical History (Updated 05/09/25 @ 09:14 by Marybel Meza PA-C) Venous thrombosis of upper extremity Left brachial, basilic, ulnar vein diagnosis on 04/11/2025 <Marybel Meza PA-C - Last Filed: 05/09/25 09:16> Social History Social History: Social History Smoking packs per day: 1 Smoking cigarettes per day: 20.0 Years smoked: 20 Smoking pack-years: 20.00 Smoking status: Current every day smoker Tobacco type: cigarettes and e-cigarettes/vaping Alcohol intake: current Drinks per week: 6 Substance use: current Substance use type: marijuana Do You Feel Safe in your Home?: Yes Lack of Transportation: No Lack of Food: Often True Current Housing: I Do Not Have Housing Concerned About Future Housing: YES Difficulty Paying Gas/Electric Bills: YES Difficulty Paying for Meds: YES Currently Unemployed: YES Education: High School Diploma/GED Difficulty w/ Childcare or Family Care: No Spiritual care concerns: No <Marybel Meza PA-C - Last Filed: 05/09/25 09:16> Exam 2 Narrative: GENERAL: Well-appearing, well-nourished, and in no acute distress. HEAD: Normocephalic, atraumatic. EYES: EOMI. ENT: Nares clear, no rhinorrhea or epistaxis. Mucous membranes moist. Oropharynx without tonsillar hypertrophy exudate or other lesions. NECK: Supple. No adenopathy or masses. CHEST: Clear to auscultation. No respiratory distress. No wheezes rales or rhonchi HEART: Regular rate and rhythm. No murmur heard. Normal peripheral pulses. ABDOMEN: Soft, nontender, nondistended, normal active bowel sounds. EXTREMITIES: Normal range of motion. No edema. SKIN: Warm, dry, no rash. NEURO: No focal deficits. Alert and oriented x3. PSYCH: Normal mood and affect <Marybel Meza PA-C - Last Filed: 05/09/25 09:16> Course Course Emergency Course: Patient updated on workup thus far, care taken over by Dr. Jasso at shift change <Marybel Meza PA-C - Last Filed: 05/09/25 09:16> Patient updated on workup thus far, care taken over by Dr. Jasso at shift change. Patient care signed out by previous provider pending CT angiography and likely discharge home assuming unremarkable workup. CT shows no PE, no acute findings in the chest. CT abdomen pelvis shows possible cystitis but otherwise no acute abnormalities or findings. Patient's laboratory studies are unremarkable aside from some elevated liver function panel enzymes but no abnormality on CT scan to explain this. No leukocytosis or significant anemia worse than baseline. Normal platelet count. Electrolytes are normal. Normal renal function and normal bilirubin. Urinalysis has some bacteria and trace leukocyte esterase and negative test. Patient has no urinary symptoms. Negative drug screen. Patient is hemodynamically stable and safe for discharge with outpatient primary care prior follow-up. <Enrique Jasso MD - Last Filed: 05/08/25 05:20> Vital Signs Vital signs: Vital Signs Temperature 98.1 F 05/07/25 22:52 Pulse Rate 101 H 05/07/25 22:52 Respiratory Rate 20 05/07/25 22:52 Blood Pressure 137/80 05/07/25 22:52 Pulse Oximetry 96 05/07/25 22:52 Temperature 98.1 F 05/07/25 22:52 Pulse Rate 96 05/08/25 04:44 Respiratory Rate 18 05/08/25 04:44 Blood Pressure 139/79 05/08/25 04:44 Pulse Oximetry 99 05/08/25 04:44 <Marybel Meza PA-C - Last Filed: 05/09/25 09:16> Vital Signs Temperature 98.1 F 05/07/25 22:52 Pulse Rate 101 H 05/07/25 22:52 Respiratory Rate 20 05/07/25 22:52 Blood Pressure 137/80 05/07/25 22:52 Pulse Oximetry 96 05/07/25 22:52 Temperature 98.1 F 05/07/25 22:52 Pulse Rate 96 05/08/25 04:44 Respiratory Rate 18 05/08/25 04:44 Blood Pressure 139/79 05/08/25 04:44 Pulse Oximetry 99 05/08/25 04:44 <Enriuqe Jasso MD - Last Filed: 05/08/25 05:20> MDM - Syncope MDM Narrative Medical decision making narrative: Presents to the emergency department reporting multiple syncopal episodes today reporting prodromal lightheadedness. Does report often happening when going from seated to standing. She is quite orthostatic upon arrival. She was hydrated with 2 L of IV fluids in the ED. CBC without concerning findings. Metabolic panel with transaminitis. Total bili and lipase are normal. She is not endorsing any abdominal discomfort. UA with 1+ bacteria, moderate squamous epithelial cells. Likely contamination. Patient does not have any urinary symptoms. test is negative. CTA chest PE with abdomen pelvis obtained for further evaluation. Care taken over by Dr. Jasso at shift change <Marybel Meza PA-C - Last Filed: 05/09/25 09:16> Differential Diagnosis Differential diagnosis: Likely syncope due to orthostatic hypotension, vasovagal syncope, pulmonary embolism, dehydration and other (Arrhythmia) <Marybel Meza PA-C - Last Filed: 05/09/25 09:16> Medical Records Medical records narrative: Echocardiogram 04/13/25 Summary 1. Normal 2D echocardiogram. 2. Doppler study demonstrating a trace of mitral regurgitation, valve appears structurally normal. <Marybel Meza PA-C - Last Filed: 05/09/25 09:16> Lab Data Attestation: I reviewed the patient's lab results. <Marybel Meza PA-C - Last Filed: 05/09/25 09:16> Result diagrams: 05/07/25 23:08 05/07/25 23:08 <Marybel Meza PA-C - Last Filed: 05/09/25 09:16> Labs: Lab Results 05/07/25 05/07/25 05/08/25 Range/Units 23:08 23:35 00:06 WBC 6.3 (4.5-10.0) K/mm3 RBC 4.12 L (4.2-5.4) M/mm3 Hgb 11.7 L (12.0-15.0) g/dL Hct 36.2 L (37.0-47.0) % MCV 87.9 (80-100) fl MCH 28.4 (26-34) pg MCHC 32.3 (32-36) g/dl RDW 13.8 (11.5-14.5) % Plt Count 287 (150-375) k/mm3 MPV 8.8 (7.4-10.4) fl Immature Gran % (Auto) 0.2 (0-0.5) % Neut % (Auto) 56.4 (45.5-73.1) % Lymph % (Auto) 33.9 (18.3-44.2) % [place] % (Auto) 7.2 (2.6-8.5) % Eos % (Auto) 1.3 (0-4.4) % Baso % (Auto) 1.0 (0.2-1.2) % Lymph # (Auto) 2.13 (0.9-3.2) K/mm3 [place] # (Auto) 0.5 (0.1-0.6) K/mm3 Eos # (Auto) 0.1 (0-0.3) K/mm3 Baso # (Auto) 0.1 (0.0-0.1) K/mm3 Abs Immat Gran (auto) 0.01 (0.00-0.031) K/mm3 Absolute Neuts (auto) 3.6 (1.3-6.7) K/mm3 Absolute Nucleated RBC 0.000 (0.0-0.012) K/mm3 Nucleated RBC % 0.0 (0.0-0.2) % PT 13.7 (11.1-14.7) Seconds INR 1.1 APTT 31.1 (22.3-36.8) Seconds Sodium 138 (137-145) mmol/L Potassium 4.0 (3.4-5.0) mmol/L Chloride 105 (98-107) mmol/L Carbon Dioxide 24 (22-30) mmol/L Anion Gap 9 (4-12) mmol/L BUN 15 (7-17) mg/dL Creatinine 0.74 (0.7-1.0) mg/dL Estim Creat Clear Calc 97 ml/min Estimated GFR > 60 (59 - ) Glucose 153 H (65-110) mg/dL Calcium 9.0 (8.4-10.2) mg/dL Total Bilirubin 0.4 0.5 (0.2-1.3) mg/dL Direct Bilirubin 0.0 (0-0.3) mg/dL AST 320 H 304 H (14-36) U/L ALT 513 H 505 H (6-35) U/L Alkaline Phosphatase 136 H 144 H (38-126) U/L Total Creatine Kinase 75 (30-135) U/L Troponin I < 0.012 (0.000-0.034) ng/mL Total Protein 7.1 6.7 (6.3-8.2) g/dL Albumin 3.8 3.7 (3.5-5.1) g/dL Lipase 256 (23-300) U/L Urine Color (Yellow) Urine Appearance (Clear) Urine pH (5.0-9.0) Ur Specific [place] (1.001-1.035) Urine Protein (Negative) mg/dL Urine Glucose (UA) (Negative) mg/dL Urine Ketones (Negative) mg/dL Ur Blood (Man) (Negative) Urine Nitrate (Negative) Urine Bilirubin (Negative) Urine Urobilinogen (<2.0) mg/dL Leukocyte Esterase Rfl (Negative) MACARIO/UL Urine RBC (0-2) /hpf Urine WBC (0-3) /hpf Ur Squamous Epith Cells (Few) /hpf Urine Bacteria /hpf Urine Casts POC Urine HCG, Qual (Negative) Urine Test Urine Opiates Screen Negative (Negative) Urine Methadone Screen Negative (Negative) Ur Barbiturates Screen Negative (Negative) Ur Phencyclidine Scrn Negative (Negative) Ur Amphetamine Screen Negative (Negative) U Benzodiazepines Scrn Negative (Negative) Urine Cocaine Screen Negative (Negative) U Cannabinoids Screen Negative (Negative) Hepatitis A IgM Ab Negative (Negative) Hep Bs Antigen Negative (Negative) Hep B Core IgM Ab Negative (Negative) Hepatitis C Ab Screen Reactive (Negative) Hepatitis C RNA Quant Pending HCV RNA (PCR) log10 Pending 05/08/25 05/08/25 Range/Units 00:08 01:06 WBC (4.5-10.0) K/mm3 RBC (4.2-5.4) M/mm3 Hgb (12.0-15.0) g/dL Hct (37.0-47.0) % MCV (80-100) fl MCH (26-34) pg MCHC (32-36) g/dl RDW (11.5-14.5) % Plt Count (150-375) k/mm3 MPV (7.4-10.4) fl Immature Gran % (Auto) (0-0.5) % Neut % (Auto) (45.5-73.1) % Lymph % (Auto) (18.3-44.2) % [place] % (Auto) (2.6-8.5) % Eos % (Auto) (0-4.4) % Baso % (Auto) (0.2-1.2) % Lymph # (Auto) (0.9-3.2) K/mm3 [place] # (Auto) (0.1-0.6) K/mm3 Eos # (Auto) (0-0.3) K/mm3 Baso # (Auto) (0.0-0.1) K/mm3 Abs Immat Gran (auto) (0.00-0.031) K/mm3 Absolute Neuts (auto) (1.3-6.7) K/mm3 Absolute Nucleated RBC (0.0-0.012) K/mm3 Nucleated RBC % (0.0-0.2) % PT (11.1-14.7) Seconds INR APTT (22.3-36.8) Seconds Sodium (137-145) mmol/L Potassium (3.4-5.0) mmol/L Chloride (98-107) mmol/L Carbon Dioxide (22-30) mmol/L Anion Gap (4-12) mmol/L BUN (7-17) mg/dL Creatinine (0.7-1.0) mg/dL Estim Creat Clear Calc ml/min Estimated GFR (59 - ) Glucose (65-110) mg/dL Calcium (8.4-10.2) mg/dL Total Bilirubin (0.2-1.3) mg/dL Direct Bilirubin (0-0.3) mg/dL AST (14-36) U/L ALT (6-35) U/L Alkaline Phosphatase (38-126) U/L Total Creatine Kinase (30-135) U/L Troponin I (0.000-0.034) ng/mL Total Protein (6.3-8.2) g/dL Albumin (3.5-5.1) g/dL Lipase (23-300) U/L Urine Color Yellow (Yellow) Urine Appearance Clear (Clear) Urine pH 6.5 (5.0-9.0) Ur Specific [place] 1.027 (1.001-1.035) Urine Protein Negative (Negative) mg/dL Urine Glucose (UA) Negative (Negative) mg/dL Urine Ketones Trace H (Negative) mg/dL Ur Blood (Man) Negative (Negative) Urine Nitrate Negative (Negative) Urine Bilirubin Negative (Negative) Urine Urobilinogen 1.0 (<2.0) mg/dL Leukocyte Esterase Rfl Trace H (Negative) MACARIO/UL Urine RBC 0-2 (0-2) /hpf Urine WBC 0-5 (0-3) /hpf Ur Squamous Epith Cells Moderate (Few) /hpf Urine Bacteria 1+ H /hpf Urine Casts 0-2 POC Urine HCG, Qual Negative (Negative) Urine Test Negative Urine Opiates Screen (Negative) Urine Methadone Screen (Negative) Ur Barbiturates Screen (Negative) Ur Phencyclidine Scrn (Negative) Ur Amphetamine Screen (Negative) U Benzodiazepines Scrn (Negative) Urine Cocaine Screen (Negative) U Cannabinoids Screen (Negative) Hepatitis A IgM Ab (Negative) Hep Bs Antigen (Negative) Hep B Core IgM Ab (Negative) Hepatitis C Ab Screen (Negative) Hepatitis C RNA Quant HCV RNA (PCR) log10 <Marybel Meza PA-C - Last Filed: 05/09/25 09:16> Lab Results 05/07/25 05/07/25 05/08/25 Range/Units 23:08 23:35 00:06 WBC 6.3 (4.5-10.0) K/mm3 RBC 4.12 L (4.2-5.4) M/mm3 Hgb 11.7 L (12.0-15.0) g/dL Hct 36.2 L (37.0-47.0) % MCV 87.9 (80-100) fl MCH 28.4 (26-34) pg MCHC 32.3 (32-36) g/dl RDW 13.8 (11.5-14.5) % Plt Count 287 (150-375) k/mm3 MPV 8.8 (7.4-10.4) fl Immature Gran % (Auto) 0.2 (0-0.5) % Neut % (Auto) 56.4 (45.5-73.1) % Lymph % (Auto) 33.9 (18.3-44.2) % [place] % (Auto) 7.2 (2.6-8.5) % Eos % (Auto) 1.3 (0-4.4) % Baso % (Auto) 1.0 (0.2-1.2) % Lymph # (Auto) 2.13 (0.9-3.2) K/mm3 [place] # (Auto) 0.5 (0.1-0.6) K/mm3 Eos # (Auto) 0.1 (0-0.3) K/mm3 Baso # (Auto) 0.1 (0.0-0.1) K/mm3 Abs Immat Gran (auto) 0.01 (0.00-0.031) K/mm3 Absolute Neuts (auto) 3.6 (1.3-6.7) K/mm3 Absolute Nucleated RBC 0.000 (0.0-0.012) K/mm3 Nucleated RBC % 0.0 (0.0-0.2) % PT 13.7 (11.1-14.7) Seconds INR 1.1 APTT 31.1 (22.3-36.8) Seconds Sodium 138 (137-145) mmol/L Potassium 4.0 (3.4-5.0) mmol/L Chloride 105 (98-107) mmol/L Carbon Dioxide 24 (22-30) mmol/L Anion Gap 9 (4-12) mmol/L BUN 15 (7-17) mg/dL Creatinine 0.74 (0.7-1.0) mg/dL Estim Creat Clear Calc 97 ml/min Estimated GFR > 60 (59 - ) Glucose 153 H (65-110) mg/dL Calcium 9.0 (8.4-10.2) mg/dL Total Bilirubin 0.4 0.5 (0.2-1.3) mg/dL Direct Bilirubin 0.0 (0-0.3) mg/dL AST 320 H 304 H (14-36) U/L ALT 513 H 505 H (6-35) U/L Alkaline Phosphatase 136 H 144 H (38-126) U/L Total Creatine Kinase 75 (30-135) U/L Troponin I < 0.012 (0.000-0.034) ng/mL Total Protein 7.1 6.7 (6.3-8.2) g/dL Albumin 3.8 3.7 (3.5-5.1) g/dL Lipase 256 (23-300) U/L Urine Color (Yellow) Urine Appearance (Clear) Urine pH (5.0-9.0) Ur Specific [place] (1.001-1.035) Urine Protein (Negative) mg/dL Urine Glucose (UA) (Negative) mg/dL Urine Ketones (Negative) mg/dL Ur Blood (Man) (Negative) Urine Nitrate (Negative) Urine Bilirubin (Negative) Urine Urobilinogen (<2.0) mg/dL Leukocyte Esterase Rfl (Negative) MACARIO/UL Urine RBC (0-2) /hpf Urine WBC (0-3) /hpf Ur Squamous Epith Cells (Few) /hpf Urine Bacteria /hpf Urine Casts POC Urine HCG, Qual (Negative) Urine Test Urine Opiates Screen Negative (Negative) Urine Methadone Screen Negative (Negative) Ur Barbiturates Screen Negative (Negative) Ur Phencyclidine Scrn Negative (Negative) Ur Amphetamine Screen Negative (Negative) U Benzodiazepines Scrn Negative (Negative) Urine Cocaine Screen Negative (Negative) U Cannabinoids Screen Negative (Negative) Hepatitis A IgM Ab Negative (Negative) Hep Bs Antigen Negative (Negative) Hep B Core IgM Ab Negative (Negative) Hepatitis C Ab Screen Reactive (Negative) Hepatitis C RNA Quant Pending HCV RNA (PCR) log10 Pending 05/08/25 05/08/25 Range/Units 00:08 01:06 WBC (4.5-10.0) K/mm3 RBC (4.2-5.4) M/mm3 Hgb (12.0-15.0) g/dL Hct (37.0-47.0) % MCV (80-100) fl MCH (26-34) pg MCHC (32-36) g/dl RDW (11.5-14.5) % Plt Count (150-375) k/mm3 MPV (7.4-10.4) fl Immature Gran % (Auto) (0-0.5) % Neut % (Auto) (45.5-73.1) % Lymph % (Auto) (18.3-44.2) % [place] % (Auto) (2.6-8.5) % Eos % (Auto) (0-4.4) % Baso % (Auto) (0.2-1.2) % Lymph # (Auto) (0.9-3.2) K/mm3 [place] # (Auto) (0.1-0.6) K/mm3 Eos # (Auto) (0-0.3) K/mm3 Baso # (Auto) (0.0-0.1) K/mm3 Abs Immat Gran (auto) (0.00-0.031) K/mm3 Absolute Neuts (auto) (1.3-6.7) K/mm3 Absolute Nucleated RBC (0.0-0.012) K/mm3 Nucleated RBC % (0.0-0.2) % PT (11.1-14.7) Seconds INR APTT (22.3-36.8) Seconds Sodium (137-145) mmol/L Potassium (3.4-5.0) mmol/L Chloride (98-107) mmol/L Carbon Dioxide (22-30) mmol/L Anion Gap (4-12) mmol/L BUN (7-17) mg/dL Creatinine (0.7-1.0) mg/dL Estim Creat Clear Calc ml/min Estimated GFR (59 - ) Glucose (65-110) mg/dL Calcium (8.4-10.2) mg/dL Total Bilirubin (0.2-1.3) mg/dL Direct Bilirubin (0-0.3) mg/dL AST (14-36) U/L ALT (6-35) U/L Alkaline Phosphatase (38-126) U/L Total Creatine Kinase (30-135) U/L Troponin I (0.000-0.034) ng/mL Total Protein (6.3-8.2) g/dL Albumin (3.5-5.1) g/dL Lipase (23-300) U/L Urine Color Yellow (Yellow) Urine Appearance Clear (Clear) Urine pH 6.5 (5.0-9.0) Ur Specific [place] 1.027 (1.001-1.035) Urine Protein Negative (Negative) mg/dL Urine Glucose (UA) Negative (Negative) mg/dL Urine Ketones Trace H (Negative) mg/dL Ur Blood (Man) Negative (Negative) Urine Nitrate Negative (Negative) Urine Bilirubin Negative (Negative) Urine Urobilinogen 1.0 (<2.0) mg/dL Leukocyte Esterase Rfl Trace H (Negative) MACARIO/UL Urine RBC 0-2 (0-2) /hpf Urine WBC 0-5 (0-3) /hpf Ur Squamous Epith Cells Moderate (Few) /hpf Urine Bacteria 1+ H /hpf Urine Casts 0-2 POC Urine HCG, Qual Negative (Negative) Urine Test Negative Urine Opiates Screen (Negative) Urine Methadone Screen (Negative) Ur Barbiturates Screen (Negative) Ur Phencyclidine Scrn (Negative) Ur Amphetamine Screen (Negative) U Benzodiazepines Scrn (Negative) Urine Cocaine Screen (Negative) U Cannabinoids Screen (Negative) Hepatitis A IgM Ab (Negative) Hep Bs Antigen (Negative) Hep B Core IgM Ab (Negative) Hepatitis C Ab Screen (Negative) Hepatitis C RNA Quant HCV RNA (PCR) log10 <Enrique Jasso MD - Last Filed: 05/08/25 05:20> Imaging Data Radiologist's impression: ITS Impressions Chest X-Ray 05/08/25 06:28 IMPRESSION: 1: NO ACUTE CARDIOPULMONARY DISEASE. Chest/Abdomen/Pelvis CTA 05/08/25 07:00 IMPRESSION: 1. No acute cardiopulmonary disease. No significant vascular abnormality. 2: Mild bladder wall thickening which may be due to contraction or underlying cystitis. Clinically correlate. <Marybel Meza PA-C - Last Filed: 05/09/25 09:16> ECG Data EKG #1: ECG completion date: 05/08/25 <Marybel Meza PA-C - Last Filed: 05/09/25 09:16> EKG Interpretation: normal rate, sinus rhythm, no ST changes and normal QT <BRADLEY Fu Last Filed: 05/09/25 09:16> Critical Care Time Critical Care Time Critical Care Time: No <BRADLEY Fu Last Filed: 05/09/25 09:16> Discharge Plan Discharge Clinical Impression: Orthostatic hypotension, Transaminitis Syncope Qualifiers: Syncope type: unspecified Qualified Code(s): R55 - Syncope and collapse <Marybel Meza PA-C - Last Filed: 05/09/25 09:16> Patient Disposition: Home <Marybel Meza PA-C - Last Filed: 05/09/25 09:16> Condition: Stable <BRADLEY Fu Last Filed: 05/09/25 09:16> Instructions: Antibiotic Form, Syncope (ED) <Marybel Meza PA-C - Last Filed: 05/09/25 09:16> Additional Instructions: CT scan shows no blood clots, no pulmonary embolism, no acute findings within the abdomen pelvis or chest. Laboratory studies do show some mild elevated liver function panel enzymes but no signs or acute disease on the CT scan. Follow-up with your primary care provider regarding your presentation here. Return with any emergent concerns. <BRADLEY Fu Last Filed: 05/09/25 09:16> Patient Language: Kuwaiti <Marybel Meza PA-C - Last Filed: 05/09/25 09:16> Prescriptions: No Action multivitamin with folic acid [Daily-Celia (with folic acid)] 400 mcg tablet PO hydroxyzine pamoate 25 mg capsule 50 mg PO Q4H PRN (Reason: anxiety) prazosin 1 mg capsule 1 mg PO DAILY prazosin 2 mg capsule 2 mg PO QPM Eliquis 5 mg tablet 5 mg PO BID Qty: 60 0RF Rx Instructions: start on 04/20/25 <Marybel Meza PA-C - Last Filed: 05/09/25 09:16> Follow-up/Referrals: PHYSICIAN,CLASSROOM COORDINATOR [Primary Care Provider] - <Marybel Meza PA-C - Last Filed: 05/09/25 09:16> Time of Disposition: 03:49 <Marybel Meza PA-C - Last Filed: 05/09/25 09:16> 03:49 <Enrique Jasso MD - Last Filed: 05/08/25 05:20>
[2025-05-08 00:06] LABS: INR 1.1; Partial Thromboplastin Time 31.1 Seconds (22.3-36.8); Prothrombin Time 13.7 Seconds (11.1-14.7)
--- OUTSIDE RECORDS SUMMARY | 2025-05-08 00:17 | XMS_ITS | Patient Health Record ---
[facility] Organization [facility] Address [address] [place] [address] Care Team Providers Care Postal Supervisor Name Role Phone SparrLesly Primary Care Provider Vik Kelley Unavailable [phone] Tyra, Bria Unavailable [phone] Everton, Phuong Unavailable [phone] Allergies No Known Allergies Results Component Value Reference Range Notes QuantiFERON-TB Gold Plus ([id number]) (Not yet reviewed by provider) Interpretation: Performing Lab:[facility], [address] [facility], [place], Phone - [phone], [facility] Notes/Report: QuantiFERON Incubation Incubation performed. QuantiFERON-TB Gold [...] with others, in a hotel, in a senior care, living outside on the street, on a [...] phone, visiting friends or family, going to hinduism or club meetings) Less than once a week How stressed are you? Stress is when someone feels tense, nervous, anxious, or can\t sleep at night because their mind is troubled Somewhat In the past year have you sp ent more than 2 nights in a row in a custodial, halfway, [place] [facility] center, or juvenile correctional facility? Yes What [...] Status Risk Notes Problem Attention deficit disorder (03746738) ADD (attention deficit disorder) (F90.0) Active confirmed Self- report diagnosis from childhood. 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) Active confirmed Vital Signs Heart Rate 83 /min 04/28/2025 Temperature 98.0 degrees Fahrenheit 04/28/2025 Respiratory Rate 16 /min 04/28/2025 Blood pressure diastolic 78 mm Hg 04/28/2025 Oximetry 99 % 04/28/2025 Height 65 in 04/28/2025 Blood pressure systolic 144 mm Hg 04/28/2025 Weight 177 lbs 05/01/2025 BMI 29.45 kg/m2 04/28/2025 Encounters Encounter Location Date Provider Diagnosis [facility] [place] [address] 04/10/2025 Lesly Snell Encounter for adult wellness visit Z00.00 ; Methamphetamine use disorder, moderate F15.20 and Over weight E66.3 [facility] [address] 04/10/2025 Phuong Toscano Methamphetamine use disorder, moderate F15.20 and ADD (attention deficit disorder) F90.0 [facility] [address] 04/17/2025 Bria Tyra Trauma and stressor-related disorder F43.9 and Methamphetamine use disorder, moderate F15.20 [facility] [address] [place] [address] 04/24/2025 Bria Tyra Trauma and stressor-related disorder F43.9 ; Methamphetamine use disorder, moderate F15.20 and ADD (attention deficit disorder) F90.0 [place] [address] [place] [address] 04/28/2025 Vik Kelley Over weight E66.3 ; Methamphetamine use disorder, moderate F15.20 ; Alcohol use disorder F10.99 and DVT (deep venous thrombosis) I82.409 [facility] [address] [address] 05/01/2025 Bria Tyra Trauma and stressor-related disorder F43.9 ; Methamphetamine use disorder, moderate F15.20 and ADD (attention deficit disorder) F90.0 Assessments Encounter Date Diagnosis (ICD Code) Assessment Notes Treatment Notes Treatment Clinical Notes Section Notes 04/10/2025 Methamphetamine use disorder, moderate (ICD-10 - F15.20) SUPR Programs: Based on an evaluation of [facility] Patient Placement Criteria, a recommendation for [...] - Z00.00) Continue treatment as recommended by [facility] staff. Encouraged patient to [...] or be administered own oral medications per [facility] protocols. Provided informed consent with understanding of [...] Mary PMHNP- to: [] consider utilizing therapist/counselor /social work associate/psychologist , referral given [x] continue with therapist/counselor /social work associate/psychologist Psychoeducation: -Treatment options discussed in detail with patient/guardian verbalizing understanding of treatment rationales. -Side effects and benefits of all medications prescribed discussed at length between psychiatric prescribing provider and patient/guardian along with the risks associated of dzxu-wp-mcut interactions, including but not limited to prescription [...] engaged in treatment plan with Bria Mary [facility]. -Perceiving complete understanding of rationale by patient/guardian and willingness to adhere to formulated plan of care by prescriber with patient/guardian buy-in, willingness to participate actively in plan of care and willing to take charge of own care. -Although geared for female patients, all patients/guardians are informed by prescribing provider of risks of medications that could potentially be taken by female/women within their [place] of influence and that women who use [...] a should occur, to consult with provider, DIVISION PLANT ENGINEER and/or Nurse Private Security Guard to determine if prescribed medications should or [...] or be administered own oral medications per [facility] protocols. Provided informed consent with understanding of [...] 25 mg q4hrs PRN Discharge date from [facility] is 05/06 Treatment Plan: -Consider non stimulant ADHD medication once off Eliquis -Follow up: 1 week [] Hard Rx handed to patient [] Rx phoned into pharmacy [x] Rx faxed/e-prescribed into pharmacy [] PDMP Reviewed [] [facility] Reviewed Encouraged by Bria Mary PMHNP-BC to: [] consider utilizing therapist/counselor /social work associate/psychologist , referral given [x] continue with therapist/counselor /social work associate/psychologist Psychoeducation: -Treatment options discussed in detail with patient/guardian verbalizing understanding of treatment rationales. -Side effects and benefits of all medications prescribed discussed at length between psychiatric prescribing provider and patient/guardian along with the risks associated of gmih-oi-dvpi interactions, including but not limited to prescription [...] engaged in treatment plan with Bria Mary [facility]. -Perceiving complete understanding of rationale by patient/guardian and willingness to adhere to formulated plan of care by prescriber with patient/guardian buy-in, willingness to participate actively in plan of care and willing to take charge of own care. -Although geared for female patients, all patients/guardians are informed by prescribing provider of risks of medications that could potentially be taken by female/women within their [place] of influence and that women who use [...] a should occur, to consult with provider, DIVISION PLANT ENGINEER and/or Nurse Private Security Guard to determine if prescribed medications should or [...] or be administered own oral medications per [facility] protocols. Provided informed consent with understanding of [...] 25 mg q4hrs PRN Discharge date from [facility] is 05/11 Treatment Plan: -Stop Prazosin at next visit -Follow up: 1 week [] Hard Rx handed to patient [] Rx phoned into pharmacy [x] Rx faxed/e-prescribed into pharmacy [] PDMP Reviewed [] [facility] Reviewed Encouraged by Bria CRAMERP-BC to: [] consider utilizing therapist/counselor /social work associate/psychologist , referral given [x] continue with therapist/counselor /social work associate/psychologist Psychoeducation: -Treatment options discussed in detail with patient/guardian verbalizing understanding of treatment rationales. -Side effects and benefits of all medications prescribed discussed at length between psychiatric prescribing provider and patient/guardian along with the risks associated of uwrr-li-iukq interactions, including but not limited to prescription [...] potentially be taken by female/women within their [place] of influence and that women who use [...] a should occur, to consult with provider, DIVISION PLANT ENGINEER and/or Nurse Private Security Guard to determine if prescribed medications should or [...] Test Name Order Date QuantiFERON-TB Gold Plus ([id number]) 2024 Next Appt Details Provider Name:Bria walls, 05/09/2025 10:20:00 AM, [address] [place] [address], [phone], Insurance Providers Payer Name Payer Address Payer Phone Subscriber Number Group Number Insured Name Patient Relationship to Insured Coverage Start Date Coverage End Date [employer] [address] [place] [address] [id number] Shira Hairston Self - patient is the insured [employer] [facility] [address] [place] [address] [id number] Shira Hairston Self - patient is the insured 5 [employer] [address] [place] [address] [id number] Shira Hairston Self - patient is the insured 5 Medical (General) History Medical History History ICD Code Rhambdomyolosis Blood clots in left arm Surgical History Surgery Date(Month/Year) gastric sleeve 2019 Hospitalization History Reason Date(Month/Year) Daniel- Blood Clot in arm 03/2025 [facility] 03/2025
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
[2025-05-08 00:24] LABS: Add Urine Microscopic? YES; Appearance Urine Clear (Clear); Glucose Urine UA Negative (Negative); Leukocyte Esterase Ur Trace LEU/UL (Negative); Nitrate Urine Negative (Negative); Non Pathogenic Casts 0-2; Specific Grav Ur 1.027 (1.001-1.035)
[2025-05-08 00:52] LABS: Cannabinoid Screen Urine Negative (Negative)
[2025-05-08 01:04] LABS: Pregnancy On Board Control Positive
[2025-05-08 01:08] LABS: BEDSIDEPREGUCG Negative (Negative)
[2025-05-08] MEDS: LACTATED RINGERS 1,000 ML 999 ML IV CONT (02:30)
[2025-05-08 02:55] LABS: Alanine Aminotransferase 505 U/L (6-35); Albumin Level 3.7 g/dL (3.5-5.1); Alkaline Phosphatase 144 U/L (38-126); Aspartate Amino Transferase 304 U/L (14-36); Bilirubin,Total 0.5 mg/dL (0.2-1.3); Total Protein 6.7 g/dL (6.3-8.2)
[2025-05-08 04:13] LABS: Hepatitis B Surface Antigen Negative (Negative)
[2025-05-08 04:19] LABS: HAV RESULT Negative (Negative); Hepatitis B Core IgM Result Negative (Negative)
== END 2025-05-08 04:46 | disposition home or self-care (01) ==
PROVIDERS: Student in an Organized Health Care Education/Training Program; Emergency Provider Physician Assistant
DX: I95.1 Orthostatic hypotension (principal); R74.01 Elevation of levels of liver transaminase levels; F17.210 Nicotine dependence, cigarettes, uncomplicated; F17.290 Nicotine dependence, other tobacco product, uncomplicated; Z86.718 Personal history of other venous thrombosis and embolism; Z79.01 Long term (current) use of anticoagulants; Z79.899 Other long term (current) drug therapy; R93.41 Abnormal radiologic findings on diagnostic imaging of renal pelvis, ureter, or bladder; R94.31 Abnormal electrocardiogram [ECG] [EKG]
CPT/HCPCS: 36415; 71046; 71275; 74177; 80053; 80074; 80076; 80307; 81001; 81025; 82550; 83690; 84484; 85025; 85610; 85730; 87522; 93005; 96360; 96361; 99284; J7030; J7120; Q9967